=== PATIENT | female | born 1965 | race Caucasian/White ===

== ENCOUNTER 2023-10-18 21:15 | Outpatient (REF) | payer BC, SELFPAY ==
[2023-10-24 09:07] LABS: Age Gdln ACOG Testing Note (.); HPV Aptima Negative (Negative); IGP, Aptima HPV, rfx 16/18,45 Note (.)
== END 2023-10-18 21:16 | disposition home or self-care (01) ==
LOC: LAB 21:15
PROVIDERS: PCP Nurse Practitioner; Visit Provider Nurse Practitioner
DX: Z01.419 Encounter for gynecological examination (general) (routine) without abnormal findings (principal)
CPT/HCPCS: 87624; G0145

== ENCOUNTER 2024-03-21 10:10 | Outpatient (OUT) | payer BC, SELFPAY ==
--- OUTSIDE RECORDS SUMMARY | 2024-03-21 10:17 | XMS_ITS | CCD ---
Author Organization [facility] ion Partnership [facility] Care Team Providers Care Traffic Technician Name Role Phone AICHHOLLida, [facility] ESTELLE Primary Care Unavailable ASHLEY PARK Attending Unavailable ASHLEY PARK Consulting Unavailable ASHLEY PARK Admitting Unavailable Estelle Hoang Primary Care Provider MD Ravi Phillips Attending Unava ilable MD Tianna Garcia Consulting Unavailable [facility], Estelle Hernandez Primary Care Unava ilable [facility], Estelle Hernandez Consulting Unava ilable MD Ravi Phillips Attending Unava ilable [facility], Estelle Hernandez Primary Care Unava ilable [facility], Estelle Hernandez Consulting Unava ilable [facility], Estelle Hernandez Primary Care Unava ilable MD Ravi Phillips Attending Unava ilable MD Ravi Phillips Attending Unava ilable [facility], Estelle Hernandez Primary Care Unava ilable [facility], Estelle Hernandez Primary Care Unava ilable MD Ravi Phillips Attending Unava ilable [facility], Estelle Hernandez Primary Care Unava ilable MD Yu Navarro Attending Unavailable Kwasi Rose PA-C Attending Unavail able [facility], Estelle Hernandez Referring Unava ilable [facility], Estelle Hernandez Primary Care Unava ilable MD Ravi Phillips Attending Unava ilable [facility], Estelle Hernandez Primary Care Unava ilable Estelle Hoang Primary Care Provider ESTELLE HOANG Referring Unavailable AICHHOLZ, ESTELLE J. Primary Care Unavailable ESTELLE HOANG Referring Unavailable ESTELLE HOANG Primary Care Unavailable ESTELLE HOANG Primary Care Unavailable ESTELLE HOANG Referring Unavailable ESTLELE HOANG Attending Unavailable ESTELLE HOANG Attending Unavailable ESTELLE HOANG Attending Unavailable CHERRI PAYTON Attending Unavailable CHERRI PAYTON Attending Unavailable Allergies Allergy Classification Reported Allergen(s) Allergy Type Date of Onset Reaction(s) Facility (1 source) Amoxicillin / Clavulanate; Translations: [Augmentin] Drug Allergy [facility] Repository (1 source) Penicillin G Benzathine; Translations: [penicillin G benzathine] Propensity to adverse reactions to drug (disorder) [facility] Medications Current Medications Medication Drug Class(es) Dates Sig (Normalized) Sig (Original) Kuvdvmrby-LWV-FN-APAP (TYLENOL COLD HEAD CONGESTION PO) (5 sources) Eipvkrxfk-CRD-YD -APAP (TYLENOL COLD HEAD CONGESTION PO) Indications: Acute rhinosinusitis Take by mouth 2 times daily. OTC 0 Active Problems Active Problems Problem Classification Problem Date Documented Da te Episodic/Chronic Abdominal pain (1 source) Pelvic and perineal pain; Translations: [Pelvic and perineal pain] Onset: 11-09-2023 Episodic Essential hypertension (1 source) Essential (primary) hypertension; Translations: [ESSENTIAL PRIMARY HYPERTENSION] Onset: 07-03-2021 Chronic Spondylosis; intervertebral disc disorders; other back problems (1 source) Low back pain; Translations: [Low back pain, unspecified back pain laterality, unspecified chronicity, unspecified whether sciatica present] Episodic Past or Other Problems Problem Classification Problem Date Documented Da te Episodic/Chronic Other screening for suspected conditions (not mental disorders or infectious disease) (1 source) Encounter for screening mammogram for malignant neoplasm of breast; Translations: [Encounter for screening mammogram for malignant neoplasm of breast] Onset: 03-31-2023 Episodic Results Test Name Value Interpretation Reference Range Facility US PELVIS COMPLETEon 024 US PELVIS COMPLETE EXAMINATION: PELVIC ULTRASOUND 11/09/2023 TECHNIQUE: Transabdominal pelvic ultrasound was performed. The patient did not want to undergo the transvaginal portion of the study. COMPARISON: None HISTORY: ORDERING SYSTEM PROVIDED HISTORY: Perineal pain in female FINDINGS: Measurements: Uterus: 7.4 x 4.8 x 3.0 cm Endometrial stripe: 8.8 mm Right Ovary:Not seen Left Ovary: Not seen Ultrasound Findings: Uterus: Uterus demonstrates normal myometrial echotexture. Endometrial stripe: Endometrial stripe is limited in evaluation, due to lack of endovaginal imaging. However it is thickened for a postmenopausal female and appears slightly heterogeneous. Free Fluid: No evidence of free fluid. IMPRESSION: Transabdominal only, limited study as described above. The endometrium measures 8.8 mm in this postmenopausal female and is slightly heterogeneous. Differential diagnosis includes endometrial hyperplasia, polyp, or neoplasm. Direct visualization and sampling is recommended if clinically indicated The findings were sent to the Radiology Results Communication Center at 4:02 pm on 11/09/2023 to be communicated to a licensed caregiver. Interpreted by: Kendrick Dougherty MD Signed by: Kendrick Dougherty MD 11/09/23 Final result Normal [facility] CAM DIGITAL SCREEN SELF REFERRAL W OR WO CAD BILATERALon 04-14-2023 [facility] CAM DIGITAL SCREEN SELF REFERRAL W OR WO CAD BILATERAL EXAMINATION: SCREENING DIGITAL BILATERAL MAMMOGRAM WITH TOMOSYNTHESIS, 03/31/2023 TECHNIQUE: Screening mammography of the bilateral breasts was performed with tomosynthesis. 2D standard and 3D tomosynthesis combination imaging performed through both breasts in the MLO and CC projection. Computer aided detection was utilized in the interpretation of this exam. COMPARISON: None available HISTORY: Screening. FINDINGS: Breasts are composed of scattered fibroglandular density. There is no dominant mass, architectural distortion or concerning grouping of microcalcification in either breast. IMPRESSION: No mammographic evidence of malignancy BIRADS: BIRADS - CATEGORY 1 Negative. Normal interval follow-up is recommended in 12 months. OVERALL ASSESSMENT - NEGATIVE A letter of notification will be sent to the patient regarding the results. The [employer] recommends annual mammograms for women 40 years and older. Interpreted by: Josh Anguiano DO Signed by: Josh Anguiano DO 04/14/23 Final result Normal [facility] Lipid Profileon 02-12-2023 Cholesterol [Mass/Vol] 266 mg/dL High <200 [facility] Comment on above: Result Comment: Cholesterol Guidelines: <200 Desirable 200-240 Borderline >240 Undesirable Performed By: #### C DP, CP, UAMIC #### [facility] [address] [place] [address] Fluoroscope Operator: Wes Barker MD #### LIPR #### [address] [address] Fluoroscope Operator: Anthony Machuca MD Cholesterol in HDL [Mass/Vol] 89 mg/dL Normal >40 [facility] Comment on above: Result Comment: HDL Guidelines: <40 Undesirable 40-59 Borderline >59 Desirable Performed By: #### C DP CP, UAMIC #### [address] [place], [place] [id number] Fluoroscope Operator: Wes Barker MD #### LIPR #### [address] [address] Fluoroscope Operator: Anthony Machuca MD Cholesterol in LDL [Mass/Vol] 160 mg/dL High 0-130 [facility] Comment on above: Result Comment: LDL Guidelines: <100 Desirable 100-129 Near to/above Desirable 130-159 Borderline >159 Undesirable Direct (measured) LDL and calculated LDL are not interchangeable tests. Performed By: #### C JOSE DAVILA, UAMIC #### [address] [place], [place] [id number] Fluoroscope Operator: Wes Barker MD #### LIPR #### [address] [address] Fluoroscope Operator: Anthony Machuca MD Cholesterol.total/C holesterol in HDL [Mass ratio] 3.0 {ratio} Normal <5 [facility] Comment on above: Performed By: #### C GIOVANNI CP, UAMIC #### [address] [place], [place] [id number] Fluoroscope Operator: Wes Barker MD #### LIPR #### [address] [address] Fluoroscope Operator: Anthony Machuca MD Triglyceride [Mass/Vol] 86 mg/dL Normal <150 [facility] Comment on above: Result Comment: Triglyceride Guidelines: <150 Desirable 150-199 Borderline 200-499 High >499 Very high Based on AHA Guidelines for fasting triglyceride, May 2012. Performed By: #### C DP, CP, UAMIC #### [facility] [address] [place] [address] Fluoroscope Operator: Wes Barker MD #### LIPR #### [facility] [address] [place], [place] [address] Fluoroscope Operator: Anthony Machuca MD CBC with Auto Differentialon 02-11-2023 Basophils (Bld) [#/Vol] 0.08 10*3/uL [facility] Basophils/100 WBC (Bld) 1 % 0 - 2 % [facility] Eosinophils (Bld) [#/Vol] 0.37 10*3/uL [facility] Eosinophils/100 WBC (Bld) 4 % 1 - 4 % [facility] Erythrocyte distribution width (RBC) [Ratio] 12.8 % 11.8 - 14.4 % [facility] Hematocrit (Bld) [Volume fraction] 42.7 % 36.3 - 47.1 % [facility] Hemoglobin (Bld) [Mass/Vol] 14.0 g/dL 11.9 - 15.1 g/dL [facility] Immature granulocytes (Bld) [#/Vol] [facility] Immature granulocytes/100 WBC (Bld) 0 % 0 [facility] Lymphocytes/100 WBC (Bld) 38 % 24 - 43 % [facility] Lymphocytes/100 WBC (Bld) 3.40 % [facility] MCH (RBC) [Entitic mass] 31.3 pg 25.2 - 33.5 pg [facility] MCHC (RBC) [Mass/Vol] 32.8 g/dL 28.4 - 34.8 g/dL [facility] MCV (RBC) [Entitic vol] 95.5 fL 82.6 - 102.9 fL [facility] Monocytes/100 WBC (Bld) 9 % 3 - 12 % [facility] Monocytes/100 WBC (Bld) 0.81 % [facility] Neutrophils/100 WBC (Bld) 48 % 36 - 65 % [facility] Nucleated RBC/100 WBC (Bld) [Ratio] 0.0 % 0.0 per 100 WBC [facility] Platelet mean volume (Bld) [Entitic vol] 8.7 fL 8.1 - 13.5 fL [facility] Platelets (Bld) [#/Vol] 396 10*3/uL [facility] RBC (Bld) [#/Vol] 4.47 10*6/uL 3.95 - 5.1 1 m/uL [facility] Segmented neutrophils/100 WBC (Bld) 4.19 % [facility] WBC other (Bld) [#/Vol] 8.9 [facility] CBC with Diffon 02-11-2023 Abs. Basophil 0.08 k/uL Normal 0.00-0.20 [facility] Comment on above: Performed By: #### C DP, CP, UAMIC #### [facility] [address] [place] [address] [place] [address] Fluoroscope Operator: Wes Barker MD #### LIPR #### [place] [id number] Fluoroscope Operator: Anthony Machuca MD Abs.Imm.Granulocyte <0.03 Normal 0.00-0.30 [facility] Comment on above: Performed By: #### C DP, CP, UAMIC #### [facility] [address] [place] [phone] Fluoroscope Operator: Wes Barker MD #### LIPR #### [place] [address] Fluoroscope Operator: Anthony Machuca MD Abs.Neutrophil (Seg) 4.19 k/uL Normal 1.50-8.10 [facility] Comment on above: Performed By: #### C DP, CP, UAMIC #### [facility] [address] [place], [place] 537[address]83 Fluoroscope Operator: Wes Barker MD #### LIPR #### [address] [id number] Fluoroscope Operator: Anthony Machuca MD Basophils/100 WBC (Bld) 1 % Normal 0-2 [facility] Comment on above: Performed By: #### C DP, CP, UAMIC #### [facility] [address] [place], [place] [address] Fluoroscope Operator: Wes Barker MD #### LIPR #### [address] [id number] Fluoroscope Operator: Anthony Machuca MD Eosinophils (Bld) [#/Vol] 0.37 10*3/uL Normal 0.00-0.44 [facility] Comment on above: Performed By: #### C DP, CP, UAMIC #### [facility] [address] [place], [place] [address] Fluoroscope Operator: Wes Barker MD #### LIPR #### [address] [phone] Fluoroscope Operator: Anthony Machuca MD Eosinophils/100 WBC (Bld) 4 % Normal 1-4 [facility] Comment on above: Performed By: #### C DP, CP, UAMIC #### [facility] [address] [place], [place] [address] Fluoroscope Operator: Wes Barker MD #### LIPR #### [address] [address] Fluoroscope Operator: Anthony Machuca MD Erythrocyte distribution width (RBC) [Ratio] 12.8 % Normal 11.8-14.4 [facility] Comment on above: Performed By: #### C DP, CP, UAMIC #### [facility] [address] [place], [place] [address] Fluoroscope Operator: Wes Barker MD #### LIPR #### [address] [phone] Fluoroscope Operator: Anthony Machuca MD Hematocrit (Bld) [Volume fraction] 42.7 % Normal 36.3-47.1 [facility] Comment on above: Performed By: #### C DP, CP, UAMIC #### [facility] [address] [place] [address] [place] [phone] Fluoroscope Operator: Wes Barker MD #### LIPR #### [address] [address] Fluoroscope Operator: Anthony Machuca MD Hemoglobin (Bld) [Mass/Vol] 14.0 g/dL Normal 11.9-15.1 [facility] Comment on above: Performed By: #### C DP, CP, UAMIC #### [facility] [address] [place] [address] [place] [phone] Fluoroscope Operator: Wes Barker MD #### LIPR #### [place] [address] Fluoroscope Operator: Anthony Machuca MD Immature granulocytes/100 WBC (Bld) 0 % Normal 0 [facility] Comment on above: Performed By: #### C DP, CP, UAMIC #### [address] [place], [place] [address] Fluoroscope Operator: Wes Barker MD #### LIPR #### [place] [address] Fluoroscope Operator: Anthony Machuca MD Lymphocytes (Bld) [#/Vol] 3.40 10*3/uL Normal 1.10-3.70 [facility] Comment on above: Performed By: #### C DP, CP, UAMIC #### [facility] [address] [place] [address] Fluoroscope Operator: Wes Barker MD #### LIPR #### [place] [address] [place], [place] 9375308 Fluoroscope Operator: Anthony Machuca MD Lymphocytes/100 WBC (Bld) 38 % Normal 24-43 [facility] Comment on above: Performed By: #### C DP, CP, UAMIC #### [facility] [address] [place] [address] Fluoroscope Operator: Wes Barker MD #### LIPR #### [place] [address] [place], [place] [address] Fluoroscope Operator: Anthony Machuca MD MCH (RBC) [Entitic mass] 31.3 pg Normal 25.2-33.5 [facility] Comment on above: Performed By: #### C DP, CP, UAMIC #### [facility] [address] [place] [address] Fluoroscope Operator: Wes Barker MD #### LIPR #### [address] [phone] Fluoroscope Operator: Anthony Machuca MD MCHC (RBC) [Mass/Vol] 32.8 g/dL Normal 28.4-34.8 [facility] Comment on above: Performed By: #### C DP, CP, UAMIC #### [facility] [address] [place] [address] Fluoroscope Operator: Wes Barker MD #### LIPR #### [address] [phone] Fluoroscope Operator: Anthony Machuca MD MCV (RBC) [Entitic vol] 95.5 fL Normal 82.6-102.9 [facility] Comment on above: Performed By: #### C DP, CP, UAMIC #### [facility] [address] [place], [place] 9296383 Fluoroscope Operator: Wes Barker MD #### LIPR #### [address] [address] Fluoroscope Operator: Anthony Machuca MD Monocytes (Bld) [#/Vol] 0.81 10*3/uL Normal 0.10-1.20 [facility] Comment on above: Performed By: #### C DP, CP, UAMIC #### [facility] [address] [place], [place] 575[address] Fluoroscope Operator: Wes Barker MD #### LIPR #### [address] [address] Fluoroscope Operator: Anthony Machuca MD Monocytes/100 WBC (Bld) 9 % Normal 3-12 [facility] Comment on above: Performed By: #### C DP, CP, UAMIC #### [address] [place], [place] 58[address]83 Fluoroscope Operator: Wes Barker MD #### LIPR #### [address] [address] Fluoroscope Operator: Anthony Machuca MD Neutrophil (Seg) 48 % Normal 36-65 [facility] Comment on above: Performed By: #### C DP, CP, UAMIC #### [address] [place], [place] 6647383 Fluoroscope Operator: Wes Barker MD #### LIPR #### [address] [address] Fluoroscope Operator: Anthony Machuca MD NRBC Automated 0.0 per 100 WBC Normal 0.0 [facility] Comment on above: Performed By: #### C DP, CP, UAMIC #### [address] [place] [address] Fluoroscope Operator: Wes Barker MD #### LIPR #### [place] [address] [place], [place] 7040508 Fluoroscope Operator: Anthony Machuca MD Platelet mean volume (Bld) [Entitic vol] 8.7 fL Normal 8.1-13.5 [facility] Comment on above: Performed By: #### C DP, CP, UAMIC #### [address] [place] [phone] Fluoroscope Operator: Wes Barker MD #### LIPR #### [place] [phone] Fluoroscope Operator: Anthony Machuca MD Platelets (Bld) [#/Vol] 396 10*3/uL Normal 138-453 [facility] Comment on above: Performed By: #### C DP, CP, UAMIC #### [address] [place] [phone] Fluoroscope Operator: Wes Barker MD #### LIPR #### [place] [address] Fluoroscope Operator: Anthony Machuca MD RBC (Bld) [#/Vol] 4.47 10*6/uL Normal 3.95-5.11 [facility] Comment on above: Performed By: #### C DP, CP, UAMIC #### [address] [place] [address] Fluoroscope Operator: Wes Barker MD #### LIPR #### [place] [id number] Fluoroscope Operator: Anthony Machuca MD WBC (Bld) [#/Vol] 8.9 10*3/uL Normal 3.5-11.3 [facility] Comment on above: Performed By: #### C DP, CP, UAMIC #### [facility] [address] [place] [address] Dr[address] [place], [place] 885[address]83 Fluoroscope Operator: Wes Barker MD #### LIPR #### [address] [id number] Fluoroscope Operator: Anthony Machuca MD Comp Metabolic Profon 2022 Albumin [Mass/Vol] 4.8 g/dL Normal 3.5-5.2 [facility] Comment on above: Performed By: #### C DP, CP, UAMIC #### [address] [place], [place] [address] Fluoroscope Operator: Wes Barker MD #### LIPR #### [address] [phone] Fluoroscope Operator: Anthony Machuca MD Albumin/Glob Ratio 1.6 Normal 1.0-2.5 [facility] Comment on above: Performed By: #### C DP, CP, UAMIC #### [address] [place], [place] 95[address]83 Fluoroscope Operator: Wes Barker MD #### LIPR #### [address] [address] Fluoroscope Operator: Anthony Machuca MD Alkaline Phos 100 U/L Normal 35-104 [facility] Comment on above: Performed By: #### C DP, CP, UAMIC #### [address] [place], [place] 8740783 Fluoroscope Operator: Wes Barker MD #### LIPR #### [address] [address] Fluoroscope Operator: Anthony Machuca MD ALT [Catalytic activity/Vol] 25 U/L Normal 5-33 [facility] Comment on above: Performed By: #### C DP, CP, UAMIC #### [address] [place] [address] Fluoroscope Operator: Wes Barker MD #### LIPR #### [place] [address] [place], [place] 7056808 Fluoroscope Operator: Anthony Machuca MD Anion gap [Moles/Vol] 10 mmol/L Normal 9-17 [facility] Comment on above: Performed By: #### C DP, CP, UAMIC #### [facility] [address] [place] [address] Fluoroscope Operator: Wes Barker MD #### LIPR #### [address] [id number] Fluoroscope Operator: Anthony Machuca MD AST [Catalytic activity/Vol] 27 U/L Normal <32 [facility] Comment on above: Performed By: #### C DP, CP, UAMIC #### [facility] [address] [place] [address] [address] [phone] Fluoroscope Operator: Wes Barker MD #### LIPR #### [address] [phone] Fluoroscope Operator: Anthony Machuca MD Bilirubin [Mass/Vol] 0.4 mg/dL Normal 0.3-1.2 [facility] Comment on above: Performed By: #### C DP, CP, UAMIC #### [facility] [address] [place] [address] Dr[address] [place] [phone] Fluoroscope Operator: Wes Barker MD #### LIPR #### [address] [address] Fluoroscope Operator: Anthony Machuca MD BUN/CRE Ratio 19 Normal -20 [facility] Comment on above: Performed By: #### C DP, CP, UAMIC #### [facility] [address] [place], [place] 4289283 Fluoroscope Operator: Wes Barker MD #### LIPR #### [address] [place] [address] Fluoroscope Operator: Anthony Machuca MD Calcium [Mass/Vol] 9.8 mg/dL Normal 8.6-10.4 [facility] Comment on above: Performed By: #### C DP, CP, UAMIC #### [facility] [address] [place], [place] 6222783 Fluoroscope Operator: Wes Barker MD #### LIPR #### [address] [address] Fluoroscope Operator: Anthony Machuca MD Chloride [Moles/Vol] 100 mmol/L Normal 98-107 [facility] Comment on above: Performed By: #### C DP, CP, UAMIC #### [facility] [address] [place] [address] Dr[place], [place] 1002583 Fluoroscope Operator: Wes Barker MD #### LIPR #### [address] [address] Fluoroscope Operator: Anthony Machuca MD CO2 [Moles/Vol] 29 mmol/L Normal 20-31 [facility] Comment on above: Performed By: #### C DP, CP, UAMIC #### [facility] [address] [place] [address] Dr[address] [place], [place] 0551083 Fluoroscope Operator: Wes Barker MD #### LIPR #### [address] [address] Fluoroscope Operator: Anthony Machuca MD Creatinine [Mass/Vol] 0.8 mg/dL Normal 0.5-0.9 [facility] Comment on above: Performed By: #### C DP, CP, UAMIC #### [facility] [address] [place] [address] [place], [place] 50[address]83 Fluoroscope Operator: Wes Barker MD #### LIPR #### [address] [address] Fluoroscope Operator: Anthony Machuca MD GFR/1.73 sq M.predicted among non-blacks MDRD (S/P/Bld) [Vol rate/Area] mL/min/{1.73_m2} Normal >60 [facility] Comment on above: Result Comment: These results are not intended for use in patients <18 years of age. eGFR results are calculated without a race factor using the 2020 CKD-EPI equation. Careful clinical correlation is recommended, particularly when comparing to results calculated using previous equations. The CKD-EPI equation is less accurate in patients with extremes of muscle mass, extra-renal metabolism of creatine, excessive creatine ingestion, or following therapy that affects renal tubular secretion. Performed By: #### C JOSE DAVILA, UAMIC #### [address] [place] [address] Fluoroscope Operator: Wes Barker MD #### LIPR #### [address] [id number] Fluoroscope Operator: Anthony Machuca MD Glucose [Mass/Vol] 95 mg/dL Normal 70-99 [facility] Comment on above: Performed By: #### C JOSE DAVILA, UAMIC #### [address] [place] [phone] Fluoroscope Operator: Wes Barker MD #### LIPR #### [address] [address] Fluoroscope Operator: Anthony Machuca MD Potassium [Moles/Vol] 4.4 mmol/L Normal 3.7-5.3 [facility] Comment on above: Performed By: #### C DP CP, UAMIC #### [address] [place] [address] Fluoroscope Operator: Wes Barker MD #### LIPR #### [address] [phone] Fluoroscope Operator: Anthony Machuca MD Protein [Mass/Vol] 7.8 g/dL Normal 6.4-8.3 [facility] Comment on above: Performed By: #### C DP, CP, UAMIC #### [facility] [address] [place] [address] Fluoroscope Operator: Wes Barker MD #### LIPR #### [place] [address] [place], [place] 436[address] Fluoroscope Operator: Anthony Machuca MD Sodium [Moles/Vol] 139 mmol/L Normal 135-144 [facility] [facility] Comment on above: Performed By: #### C DP, CP, UAMIC #### [facility] [address] [place] [address] Fluoroscope Operator: Wes Barker MD #### LIPR #### [address] [place], [place] [id number] Fluoroscope Operator: Anthony Machuca MD Urea nitrogen [Mass/Vol] 15 mg/dL Normal 6-20 [facility] Comment on above: Performed By: #### C DP, CP, UAMIC #### [facility] [address] [place] [address] [place] [address] Fluoroscope Operator: Wes Barker MD #### LIPR #### [address] [place], [place] [phone] Fluoroscope Operator: Anthony Machuca MD Comprehensive Metabolic Pane [facility] 02-11-2023 Albumin [Mass/Vol] 4.8 g/dL 3.5 - 5.2 g/dL [facility] Albumin/Globulin [Mass ratio] 1.6 {ratio} 1.0 - 2.5 [facility] ALP [Catalytic activity/Vol] 100 U/L 35 - 104 U/L [facility] ALT [Catalytic activity/Vol] 25 U/L 5 - 33 U/L [facility] Anion gap [Moles/Vol] 10 mmol/L 9 - 17 mmol/L [facility] AST [Catalytic activity/Vol] 27 U/L [facility] - 32 U/L [facility] Bilirubin [Mass/Vol] 0.4 mg/dL 0.3 - 1.2 mg/dL [facility] Calcium [Mass/Vol] 9.8 mg/dL 8.6 - 10. 4 mg/dL [facility] Chloride [Moles/Vol] 100 mmol/L 98 - 107 mmol/L [facility] CO2 [Moles/Vol] 29 mmol/L 20 - 31 mmol/L [facility] Creatinine [Mass/Vol] 0.8 mg/dL 0.5 - 0.9 mg/dL [facility] GFR/1.73 sq M.predicted MDRD (S/P/Bld) [Vol rate/Area] - PINF [facility] Comment on above: These results are not intended for use in patients <18 years of age. eGFR results are calculated without a race factor using the 2020 CKD-EPI equation. Careful clinical correlation is recommended, particularly when comparing to results calculated using previous equations. The CKD-EPI equation is less accurate in patients with extremes of muscle mass, extra-renal metabolism of creatine, excessive creatine ingestion, or following therapy that affects renal tubular secretion. Glucose [Mass/Vol] 95 mg/dL 70 - 99 mg/dL [facility] Potassium [Moles/Vol] 4.4 mmol/L 3.7 - 5.3 mmol/L [facility] Protein [Mass/Vol] 7.8 g/dL 6.4 - 8.3 g/dL [facility] Sodium [Moles/Vol] 139 mmol/L 135 - 144 mmol/L [facility] Urea nitrogen [Mass/Vol] 15 mg/dL 6 - 20 mg/dL [facility] Urea nitrogen/Creatinine [Mass ratio] 19 mg/mg 9 - 20 [facility] Lipid Panelon 02-11-2023 Cholesterol [Mass/Vol] 266 mg/dL High NINF - 200 mg/dL [facility] Comment on above: Cholesterol Guidelines: <200 Desirable 200-240 Borderline >240 Undesirable Cholesterol in HDL [Mass/Vol] 89 mg/dL 40 - PINF mg/dL [facility] Comment on above: HDL Guidelines: <40 Undesirable 40-59 Borderline >59 Desirable Cholesterol in LDL [Mass/Vol] 160 mg/dL High 0 - 130 mg/dL [facility] Comment on above: LDL Guidelines: <100 Desirable 100-129 Near to/above Desirable 130-159 Borderline >159 Undesirable Direct (measured) LDL and calculated LDL are not interchangeable tests. Cholesterol.total/C holesterol in HDL [Mass ratio] 3.0 {ratio} NINF - 5 [facility] Interpretation and review of laboratory results Abnormal [facility] Triglyceride [Mass/Vol] 86 mg/dL NINF - 150 mg/dL [facility] Comment on above: Triglyceride Guidelines: <150 Desirable 150-199 Borderline 200-499 High >499 Very high Based on AHA Guidelines for fasting triglyceride, May 2012. [facility] Urinalysis w/ Microon 2022 Bacteria 2+ Abnormal NONE [facility] Comment on above: Performed By: #### C DP, CP, UAMIC #### [facility] [address] [place] [address] Dr[address] [place] [id number] Fluoroscope Operator: Wes Barker MD #### LIPR #### [place] [address] [id number] Fluoroscope Operator: Anthony Machuca MD Bilirubin, SemiQt,Ur Negative Normal NEG [facility] Comment on above: Performed By: #### C DP, CP, UAMIC #### [address] [place] [phone] Fluoroscope Operator: Wes Barker MD #### LIPR #### [address] [address] Fluoroscope Operator: Anthony Machuca MD Blood, Urine Negative Normal NEG [facility] Comment on above: Performed By: #### C DP, CP, UAMIC #### [address] [place] [phone] Fluoroscope Operator: Wes Barker MD #### LIPR #### [address] [place] [address] Fluoroscope Operator: Anthony Machuca MD Clarity (U) SLIGHTLY CLOUDY Abnormal CLEAR [facility] Comment on above: Performed By: #### C DP, CP, UAMIC #### [facility] [address] [place] [address] [place], [place] [phone] Fluoroscope Operator: Wes Barker MD #### LIPR #### [address] [address] Fluoroscope Operator: Anthony Machuca MD Color (U) Yellow Normal YEL [facility] Comment on above: Performed By: #### C DP, CP, UAMIC #### [address] [place], [place] [phone] Fluoroscope Operator: Wes Barker MD #### LIPR #### [address] [address] Fluoroscope Operator: Anthony Machuca MD Epithelial cells LM Ql (Urine sed) 5 TO 10 Normal 0-25 [facility] Comment on above: Performed By: #### C DP, CP, UAMIC #### [address] [place], [place] [phone] Fluoroscope Operator: Wes Barker MD #### LIPR #### [address] [address] Fluoroscope Operator: Anthony Machuca MD Glucose Ql (U) Negative Normal NEG [facility] Comment on above: Performed By: #### C DP, CP, UAMIC #### [facility] [address] [place] [address] Dr[address] [place], [place] [phone] Fluoroscope Operator: Wes Barker MD #### LIPR #### [address] [address] Fluoroscope Operator: Anthony Machuca MD Ketones Ql (U) Negative Normal NEG [facility] Comment on above: Performed By: #### C DP, CP, UAMIC #### [facility] [address] [place] [address] Fluoroscope Operator: Wes Barker MD #### LIPR #### [address] [address] Fluoroscope Operator: Anthony Machuca MD Leukocyte esterase Test strip Ql (U) Negative Normal NEG [facility] Comment on above: Performed By: #### C DP, CP, UAMIC #### [facility] [address] [place] [address] Dr. [place], [place] [phone] Fluoroscope Operator: Wes Barker MD #### LIPR #### [address] [address] Fluoroscope Operator: Anthony Machuca MD Mucus Strands 2+ Abnormal NONE [facility] Comment on above: Performed By: #### C DP, CP, UAMIC #### [address] [place], [place] [phone] Fluoroscope Operator: Wes Barker MD #### LIPR #### [address] [address] Fluoroscope Operator: Anthony Machuca MD Nitrite,Ur Negative Normal NEG [facility] Comment on above: Performed By: #### C DP, CP, UAMIC #### [facility] [address] [place] [address] Dr[place], [place] [phone] Fluoroscope Operator: Wes Barker MD #### LIPR #### [address] [address] Fluoroscope Operator: Anthony Machuca MD PH,Ur 6.0 Normal 5.0-9.0 [facility] Comment on above: Performed By: #### C DP, CP, UAMIC #### [facility] [address] [place] [address] Dr[place], [place] [phone] Fluoroscope Operator: Wes Barker MD #### LIPR #### [address] [address] Fluoroscope Operator: Anthony Machuca MD Protein Ql (U) Negative Normal NEG [facility] Comment on above: Performed By: #### C DP, CP, UAMIC #### [facility] [address] [place], [place] [phone] Fluoroscope Operator: Wes Barker MD #### LIPR #### [address] [address] Fluoroscope Operator: Anthony Machuca MD Spec. Toxey,Ur 1.025 High 1.010-1.020 [facility] Comment on above: Performed By: #### C DP, CP, UAMIC #### [facility] [address] [place] [address] Dr[place], [place] [phone] Fluoroscope Operator: Wes Barker MD #### LIPR #### [address] [address] Fluoroscope Operator: Anthony Machuca MD Urine RBC's 0 TO 2 Normal 0-2 [facility] Comment on above: Performed By: #### C DP, CP, UAMIC #### [facility] [address] [place] [address] Dr[place], [place] [phone] Fluoroscope Operator: Wes Barker MD #### LIPR #### [address] [address] Fluoroscope Operator: Anthony Machuca MD Urine WBC's 5 TO 10 Normal 0-5 [facility] Comment on above: Performed By: #### C DP, CP, UAMIC #### [address] [place] [address] Fluoroscope Operator: Wes Barker MD #### LIPR #### [address] [address] Fluoroscope Operator: Anthony Machuca MD Urobilinogen,Ur Normal Normal 0.0-1.0 [facility] Comment on above: Performed By: #### C DP, CP, UAMIC #### [facility] [address] [place] [address] Fluoroscope Operator: Wes Barker MD #### LIPR #### [facility] [address] [place] [address] Fluoroscope Operator: Anthony Machuca MD Urinalysis with Microscopico n 02-11-2023 Bacteria LM Ql (Urine sed) 2+ Abnormal None [facility] Bilirubin Ql (U) Negative NEGATIVE [facility] Clarity (U) SLIGHTLY CLOUDY Abnormal Clear [facility] Color (U) Yellow Yellow [facility] Epithelial cells LM.HPF (Urine sed) [#/Area] 5 TO 10 [facility] Glucose Test strip (U) [Mass/Vol] Negative NEGATIVE mg/dL [facility] Hemoglobin Auto test strip Ql (U) Negative NEGATIVE [facility] Interpretation and review of laboratory results Abnormal [facility] Ketones (U) [Mass/Vol] Negative NEGATIVE mg/dL [facility] Leukocyte esterase Test strip Ql (U) Negative NEGATIVE [facility] Mucus Ql (Urine sed) 2+ Abnormal None [facility] Nitrite Ql (U) Negative NEGATIVE [facility] pH (U) 6.0 [pH] 5.0 - 9.0 [facility] Protein (U) [Mass/Vol] Negative NEGATIVE mg/dL [facility] RBC LM.HPF (Urine sed) [#/Area] 0 TO 2 [facility] Specific gravity (U) [Rel density] 1.025 High 1.010 - 1.020 [facility] Urobilinogen Qn (U) Normal 0.0 - 1. 0 EU/dL [facility] WBC LM.HPF (Urine sed) [#/Area] 5 TO 10 [facility] Neurosurgery Office/Clinic N oteon 06-23-2022 Neurosurgery Office/Clinic Note Chief Complaint Patient being seen for back follow up. Physical Exam Vitals & Measurements HR: 84 (Peripheral) BP: 138/78 SpO2: 98 HT: 152 cm WT: 68.49 kg WT: 68.49 kg (Dosing) BMI: 29.64 Additional Vitals BP Position/Location: Sitting, Left arm Assessment/Plan 1. Left lumbar radiculopathy 2. Lumbar degenerative disc disease 3. Lumbar radiculopathy, chronic Primary provider: estelle hoang Referring provider: [] Other providers: [] Current history: Pleasant 56-year-old female who presented to the neurosurgery clinic with a 6-month history of left S1 radiculopathy which caused unrelenting and intractable pain that affected all aspects of ADLs and personal care. As result of duration of her syndrome as well as failure of conservative measures, she was taken to the operating room on March 10 of this year and underwent uncomplicated left L5-S1 lumbar microdiscectomy. She was able to discharge home as an outpatient the same day. Patient returns 3 months after her intervention and notes that the majority of her sensory neuropathy has resolved such that she only has a bit of numbness on the tip of her fifth digit. She has no radicular pain but does occasionally note a pulling sensation in her inferior gluteal region and proximal hamstring left side, particularly when she first awakens and gets out of bed. She does note some low back pain that improved with stretching. Has unlimited ability to walk and has returned to most of her activities of daily lifestyle including home keeping. She is interested in returning to work. No fevers or chills or other constitutional symptoms Constitutional: [No fevers, chills, sweats] Eye: [No recent visual problems] ENMT: [No ear pain, nasal congestion, sore throat] Respiratory: [No shortness of breath, cough] Cardiovascular: [No Chest pain, palpitations, syncope] Gastrointestinal: [No nausea, vomiting, diarrhea] Genitourinary: [No hematuria] General: Pleasant and cooperative Straight leg raise: Negative Hip exam: [] Fabere sign and Johnathon's sign Cervical range of motion: [] Shoulder exam: [] Lumbar range of motion: Flexion is age-appropriate and she can come within 6 inches of touching the ground with forward flexion at the waist; unrestricted extension Incision: Well-healed Neuro: mental status: awake, alert, appropriate with normal mental status exam cranial nerves: No ophthalmoplegia, facial palsy or lower cranial neuropathy motor: 5/5 power all groups Deep tendon reflexes: [] gait: Comfortable gait with no motor neuropathy Assessment/plan: 3 months status post lumbar microdiscectomy for severe sciatica. Patient has returned and has only trace sensory deficit, no motor neuropathy, and no significant neurotension signs. Her comfort is improved as well. From a neurosurgical perspective, appears able to return to normal activities within the scope of access bending at the waist, heavy lifting, pushing, pulling. The patient is permitted to return to her preoperative job position without restrictions but is advised to avoid excess lifting or pushing or pulling Patient is pleased with her outcome and will contact the office if she has any change in her status Patient will use NSAIDs/local topical therapies such as heat or ice as she deems appropriate Old imaging reviewed with patient on large screen TV with surgeon interpretation and all of the above explained and she is appreciative. Follow-up: As needed Referrals: Medical Decision Making: Chronic conditions NOT treated during this visit that affected my overall medical decision making: N/A Treatment plans discussed but not opted for at this time: Reimaging Prescribed medication that requires intensive monitoring for toxicity: None I have reviewed the patient?s medication list for medication interactions/contrain dications and/or for upcoming procedures: Yes Time Spent with the Patient I have personally spent 16 minutes on this date, directly related to today's patient visit, including pre and post visit work, for this date of service. Time listed does not include time spent on separately billable services. Medical Decision Making Chronic conditions NOT treated during this visit that affected my overall medical decision making: [] Treatment plans discussed but not opted for at this time: [] Prescribed medication that requires intensive monitoring for toxicity: [] I have reviewed the patient?s medication list for medication interactions/contrain dications and/or for upcoming procedures: [yes or no] Time Spent with the Patient I have personally spent [] minutes on this date, directly related to today's patient visit, including pre and post visit work, for this date of service. Time listed does not include time spent on separately billable services. Problem List/Past Medical History Ongoing Bone loss of mandible Hypertension - High blood pressure Left lumbar radiculopathy Lumbar degenerative disc disease Lumbar (more content not included)... Normal [facility] Provider Letteron 06-23-2022 Provider Letter RUSTY [facility] [address] [place] [address] Re: Carleen Burns Date of Visit: 06/23/2022 Dear Estelle OJEDA, Let me know if you have any questions or concerns. Sincerely, MIGUEL Yung MD Providers: The following document(s) were included in the letter: June 23, 2022 15:42:08 EST - (06/23/2022) Neurosurgery Office Visit Note Normal [facility] Neurosurgery Office/Clinic N oteon 05-07-2022 Neurosurgery Office/Clinic Note Physical Exam Vitals & Measurements HR: 90 (Peripheral) BP: 100/54 HT: 152 cm WT: 68.1 kg WT: 68.1 kg (Dosing) BMI: 29.48 Additional Vitals BP Position/Location: Sitting, Right arm Assessment/Plan 1. Left lumbar radiculopathy 2. Lumbar degenerative disc disease Primary provider: estelle hoang Referring provider: [] Other providers: [] Current history: Pleasant 56-year-old female who presented to the neurosurgery clinic with a 6-month history of left S1 radiculopathy which caused unrelenting and intractable pain that affected all aspects of ADLs and personal care. As result of duration of her syndrome as well as failure of conservative measures, she was taken to the operating room on March 10 of this year and underwent uncomplicated left L5-S1 lumbar microdiscectomy. She was able to discharge home as an outpatient the same day. She now returns 3 weeks later noting a significant reduction in the pain in her left leg. She still has tightness in her hamstring that becomes painful if she forward flexes more than 30 to 40 degrees. She also notes some numbness in her left foot, but both are improved and she has subjective improvement in weakness. She denies any fevers or chills and has had no wound drainage. She is eating well. She wonders if she may return to work in a reduced capacity, though she is unsure whether they will permit her back with significant restrictions. Overall, the patient notes 70 to 80% improvement compared to before surgery. Patient has 1 week of physical therapy left and does find that it is improved her flexibility, though with some therapy or deep bending at the waist, she does develop some pain in her left gluteal region and hamstring. Continues to have some numbness but believes this is improving. Overall, requires no narcotic support or muscle relaxers and only rarely takes NSAIDs. Does continue to smoke cigarettes in spite of education by the surgeon (performed again today) regarding the deleterious effects with regards to disc health Constitutional: [No fevers, chills, sweats] Eye: [No recent visual problems] ENMT: [No ear pain, nasal congestion, sore throat] Respiratory: [No shortness of breath, cough] Cardiovascular: [No Chest pain, palpitations, syncope] Gastrointestinal: [No nausea, vomiting, diarrhea] Genitourinary: [No hematuria] General: Pleasant and cooperative Straight leg raise: Mildly positive at extremes range of motion Hip exam: [] Fabere sign and Johnathon's sign Cervical range of motion: [] Shoulder exam: [] Lumbar range of motion: Flexion limited to approximately 30 to 40 degrees with a complaint of increased left gluteal and hamstring pain Incision: Well-healed and Steri-Strips are removed with no infectious complications such as erythema, tenderness or fluctuance Neuro: mental status: awake, alert, appropriate with normal mental status exam cranial nerves: No ophthalmoplegia, facial palsy or lower cranial neuropathy motor: 5/5 power all groups Deep tendon reflexes: [] gait: Comfortable gait with no motor neuropathy Assessment/plan: 7 weeks following lumbar microdiscectomy for intractable left S1 radiculopathy secondary to large disc protrusion/intra annular disc herniation. Patient appears to be doing reasonably well although she still has some myotomal pain in the hamstrings and gluteal region, particularly with forward flexion of the torso or bending. This could imply a small recurrence of disc herniation or could simply be peridural fibrosis. The patient is still able to conduct most of her ADLs and work and has had rearrangement of work assignments such as she is not performing heavy lifting. The surgeon recommended that she continue restrictions at work with no lifting, pushing, pulling greater than 30 pounds but she may otherwise begin to perform more normal activities, using ergonomic methods learned at physical therapy for bending Overall, patient appears considerably more comfortable than when she entered the clinic. Patient will complete her physical therapy and slowly read meters of into more normal lifestyle, respecting recommended lifting, pushing, pulling restrictions of no greater than 30 pounds. This includes both work and at home. Patient will use NSAIDs/local topical therapies such as heat or ice as she deems appropriate Reassessment in 8 to 12 weeks Old imaging reviewed with patient on large screen TV with surgeon interpretation and all of the above explained and she is appreciative. Follow-up: 8 to 10 weeks Referrals: Medical Decision Making: Chronic conditions NOT treated during this visit that affected my overall medical decision making: N/A Treatment plans discussed but not opted for at this time: Reimaging Prescribed medication that requires intensive monitoring for toxicity: None I have reviewed the patient?s medication list for medication interactions/contrain dications and/or for upcoming procedures: Yes Time Spent with the Patient I have personal (more content not included)... Normal [facility] Provider Letteron 05-07-2022 Provider Letter [facility]UST[facility] [address] [place] [address] Re: Carleen Anese Date of Visit: 05/07/2022 Dear Estelle OJEDA, Let me know if you have any questions or concerns. Sincerely, MIGUEL Yung MD C Providers: The following document(s) were included in the letter: May 07, 2022 14:54:11 EDT - (05/07/2022) Neurosurgery Office Visit Note Normal [facility] Neurosurgery Office/Clinic N oteon 04-02-2022 Neurosurgery Office/Clinic Note Chief Complaint Pt states being seen for a post op visit. Physical Exam Vitals & Measurements HR: 70 (Peripheral) BP: 110/62 SpO2: 98 HT: 152 cm WT: 65 kg WT: 65 kg (Dosing) BMI: 28.13 Additional Vitals BP Position/Location: Sitting, Left arm Assessment/Plan 1. Left lumbar radiculopathy Ordered: Referral to Physical Therapy 2. Lumbar degenerative disc disease Ordered: Referral to Physical Therapy 3. Lumbar radiculopathy, chronic Ordered: Referral to Physical Therapy 4. Nicotine dependence Ordered: Referral to Physical Therapy Orders: External Referral Primary provider: estelle hoang Referring provider: [] Other providers: [] Current history: Pleasant 56-year-old female who presented to the neurosurgery clinic with a 6-month history of left S1 radiculopathy which caused unrelenting and intractable pain that affected all aspects of ADLs and personal care. As result of duration of her syndrome as well as failure of conservative measures, she was taken to the operating room on March 10 of this year and underwent uncomplicated left L5-S1 lumbar microdiscectomy. She was able to discharge home as an outpatient the same day. She now returns 3 weeks later noting a significant reduction in the pain in her left leg. She still has tightness in her hamstring that becomes painful if she forward flexes more than 30 to 40 degrees. She also notes some numbness in her left foot, but both are improved and she has subjective improvement in weakness. She denies any fevers or chills and has had no wound drainage. She is eating well. She wonders if she may return to work in a reduced capacity, though she is unsure whether they will permit her back with significant restrictions. Overall, the patient notes 70 to 80% improvement compared to before surgery. She notes a bruised sensation in her back at the surgical incision site which is the majority of her discomfort. She is currently taking no medication for pain including NSAIDs Constitutional: [No fevers, chills, sweats] Eye: [No recent visual problems] ENMT: [No ear pain, nasal congestion, sore throat] Respiratory: [No shortness of breath, cough] Cardiovascular: [No Chest pain, palpitations, syncope] Gastrointestinal: [No nausea, vomiting, diarrhea] Genitourinary: [No hematuria] General: Pleasant and cooperative Straight leg raise: Mildly positive at extremes range of motion Hip exam: [] Fabere sign and Johnathon's sign Cervical range of motion: [] Shoulder exam: [] Lumbar range of motion: Flexion limited to approximately 30 to 40 degrees with a complaint of increased left gluteal and hamstring pain Incision: Well-healed and Steri-Strips are removed with no infectious complications such as erythema, tenderness or fluctuance Neuro: mental status: awake, alert, appropriate with normal mental status exam cranial nerves: No ophthalmoplegia, facial palsy or lower cranial neuropathy motor: 5/5 power all groups Deep tendon reflexes: [] gait: Comfortable gait with no motor neuropathy Assessment/plan: 3 weeks following lumbar microdiscectomy for intractable left S1 radiculopathy secondary to large disc protrusion/intra annular disc herniation. Patient appears to be doing fairly well and may have reduction in some of her postoperative restrictions. This includes: May operate automobile Lifting up to 10 pounds Return to work provided it is sedentary work style with no lifting greater than 10 pounds. Work release with restrictions are outlined by the surgeon and work release form is filled out by surgeon Initiation of physical therapy-physical therapy prescription is given to the patient Overall, patient appears considerably more comfortable than when she entered the clinic. She will proceed with physical therapy and return in 4 weeks. If at that time, she is doing well, anticipate return to normal work duties and discharge from the neurosurgery clinic. If she has worsening of residual sciatica, may require reimaging. Old imaging reviewed with patient on large screen TV with surgeon interpretation and all of the above explained and she is appreciative. Follow-up: 4 weeks Referrals: Physical therapy Medical Decision Making: Chronic conditions NOT treated during this visit that affected my overall medical decision making: N/A Treatment plans discussed but not opted for at this time: Reimaging Prescribed medication that requires intensive monitoring for toxicity: None I have reviewed the patient?s medication list for medication interactions/contrain dications and/or for upcoming procedures: Yes Time Spent with the Patient I have personally spent 19 minutes on this date, directly related to today's patient visit, including pre and post visit work, for this date of service. Time listed does not include time spent on separately billable services. Medical Decision Making Chronic conditions NOT treated during this visit that affected my overall medical decision making: [] (more content not included)... Normal [facility] Provider Letteron 04-02-2022 Provider Letter RUSTY Whitney [address] [place] [address] Re: Carleen Burns Date of Visit: 04/02/2022 Dear Estelle OJEDA, Let me know if you have any questions or concerns. Sincerely, MIGUEL Yung MD Providers: The following document(s) were included in the letter: April 02, 2022 16:09:03 EDT - (04/02/2022) Neurosurgery Office Visit Note Normal [facility] Operative Reporton 2 Operative Report Indication for Surgery Intractable and chronic left S1 radiculopathy secondary to large intra annular disc herniation left L5-S1 paramedian Preoperative Diagnosis HERNIATED NUCLEUS PULPOSUS LEFT L5-S1, INTRACTABLE RADICULOPATHY Postoperative Diagnosis Same Operation Left L5-S1 lumbar microdiscectomy; minimally invasive surgical technique using Lolly Wolly Doodle Metrix tubular retractor 6 cm x 22 mm; microscope for microdissection Surgeon(s) Alan RIVERA MD, Ravi Tafoya (Surgeon - Primary) Triage Nurse Althea Rawls PA-C (Production Assembly Supervisor) Anesthesia General Radha ALAB, Tianna Mo (Surveying Or Spatial Science Technician) Lisette Hackett (Provider) Estimated Blood Loss 5.0 mL Urine Output None Findings Sizable disc protrusion with significant ventral impingement of the left S1 nerve root Specimen(s) None-grossly normal degenerated disc Complications None Technique History: Very pleasant 56-year-old female presents with a 6-month history of progressively worsening classic S1 radiculopathy left side. The pain is become difficult enough that she is beset by pain at all times and all positions. She has transient benefit from changing positions, only to be accommodated by escalating pain in the left gluteal region, hamstring, gastrocnemius with paresthesias in S1 dermatome. The patient is currently on a prednisone pulse with limited benefit. Oral prescription NSAIDs provided no significant benefit. The patient has not had physical therapy nor steroid injection but is scheduled for a visit with pain management in the near future. The patient's examination reveals no evidence of hyperreflexia but reveals an absent Achilles reflex left side. No motor neuropathy is appreciated though she has some giveaway power due to pain aversion. She has a strongly positive straight leg raise on the left and a reverse straight leg raise on the right consistent with neurotension. Imaging demonstrates a sizable disc protrusion left L5-S1 paramedian leading to obvious impaction of the S1 nerve root. Otherwise, spinal canal is widely patent and no other pathologic process such as neoplasia or infection is seen Based on patient presentation, the patient is educated regarding the pathophysiology of degenerative disc disease, it is noted that while further conservative measures may afford some benefit through pain control, the patient's imaging and clinical condition as seen on the visit today would indicate that physical therapy and other physical modalities would be of limited benefit or would even exacerbate her pain. Pain management is reasonable to consider but given the size of her disc protrusion which is quite sizable, it is anticipated that she will continue to have pain in spite of injection or will only have transient benefit. Alternatively, minimally invasive microdiscectomy is offered as an outpatient. She is made aware of the surgical technique and postoperative restrictions and expected recovery. She is also educated as to the risk of procedure including the risk of procedure including infection, bleeding, CSF leak, neurologic injury, neuropathic pain syndrome, peridural fibrosis, failure for improvement, incomplete benefit, new neurologic deficit, spinal instability, coma, , paralysis, deep venous thrombosis, pulmonary embolism as well as recurrent disc herniation and reoperation, either delayed or acute. Is particular highlighted the possibility of recurrent disc herniation. This surgeon conducted directed history, physical, review of imaging and performed full surgical consent. Patient is grateful and wishes to proceed Procedure: Patient is brought into the operating room and general anesthetic is induced through atraumatically placed endotracheal tube. Venous access is secured and patient was turned onto awaiting Chambers operative table with a Kevin frame and placed in the prone position. Head and neck are placed in neutral position and arms are placed on arm boards with neurovascular bundles unencumbered. Lumbar region is cleaned with alcohol and dried and 18-gauge spinal needles placed adjacent to level of interest. Flouroscopy is confirmatory for level and proposed skin incision is scribed 1.3 cm to the left of midline straddling the L5 and S1 interspace. No excess hair is clipped with electric clippers as not required. Patient received IV antibiotics. Surgical region is prepped and draped in usual fashion. After appropriate side, site, patient identified in timeout maneuver is performed, full-thickness skin incision is carried down to the thoracolumbar fascia using 10 bladed knife and monopolar cautery. Fascia is incised using cutting current monopolar cautery. Blunt end of the K wire is passed to the interlaminar space of L5-S1, left side. Serial dilation using Metrix dilators is then performed until a 6 cm ? 22 mm diameter tubular retractor can be docked at the lamino- facet complex of L5-S1, left side. This is attached to table mounted Armature. Muscular pl (more content not included)... Normal [facility] Provider Letteron 03-12-2022 Provider Letter RUSTY Whitney [address] [place] [address] Re: Carleen Burns Date of Visit: 03/12/2022 Dear Estelle OJEDA, Let me know if you have any questions or concerns. Sincerely, MIGUEL Yung MD Providers: The following document(s) were included in the letter: March 12, 2022 11:19:37 EDT - (03/12/2022) Neurosurgery operative note Normal [facility] .UA Microscp Aon 03-10-2022 UA Bacteria Present Abnormal Absent [facility] Comment on above: Performed By: #### . Urinalysis Microscopic Auto ####[address] [address] UA Mucus Present Abnormal Absent [facility] Comment on above: Performed By: #### . Urinalysis Microscopic Auto ####[address] [address] UA RBC Quant 3 /HPF Normal 0-5 [facility] Comment on above: Performed By: #### . Urinalysis Microscopic Auto ####[address] [address] UA Squepi Cells Quant 1 /HPF Normal 0-29 [facility] Comment on above: Performed By: #### . Urinalysis Microscopic Auto ####[address] [address] UA WBC Quant 1 /HPF Normal 0-5 [facility] Comment on above: Performed By: #### . Urinalysis Microscopic Auto ####[address] [address] .eGFRon 03-10-2022 GFR/1.73 sq M.predicted MDRD (S/P/Bld) [Vol rate/Area] mL/min/{1.73_m2} Normal >=60 [facility] Comment on above: Result Comment: [facility] have implemented the eGFR calculation approach that does not have a coefficient for race and that conforms to the NKF-ASN Task Force Recommendations. Stages of Chronic Kidney Disease GFR Stage 3a Mild to moderate loss of kidney function 59 to 45 Stage 3b Moderate to severe loss of kidney function 44 to 33 Stage 4 Severe loss of kidney function 29 to 15 Stage 5 Kidney failure Less than 15 GFR calculated using the CKD-Epi Creatinine Equation (2020): eGFR = 142 X min(SCr/?, 1)? X max(SCr /?, 1)-1.200 X 0.9938Age X 1.012 [if female] Abbreviations/Units: eGFR (estimated glomerular filtration rate) = mL/min/1.73 m2 SCr (standardized serum creatinine) = mg/dL ? = 0.7 (females) or 0.9 (males) ? = -0.241 (females) or -0.302 (males) min = indicates the minimum of SCr/? or 1 max = indicates the maximum of SCr/? or 1 Age = years Performed By: #### E GFR ####[place] [address] ABO/Rhon 03-10-2022 ABO/Rh SD 03/12 ABO/Rh: B POS Normal [facility] Comment on above: Performed By: #### A BORH ####[facility] (DEFAULT)[address] [place], [place] [id number] [address] ABSC Autoon 03-10-2022 ABSC Auto Negative Normal [facility] Comment on above: Performed By: #### A SA ####[place] [address] CBC w/ Diffon 03-10-2022 Erythrocyte distribution width (RBC) [Ratio] 13.0 % Normal 11.6-14.8 [facility] Comment on above: Performed By: #### C BC ####[place] [id number] Hematocrit (Bld) [Volume fraction] 43.0 % Normal 36.0-46.0 [facility] Comment on above: Performed By: #### C BC ####[place] [id number] Hemoglobin (Bld) [Mass/Vol] 14.4 g/dL Normal 12.0-16.0 [facility] Comment on above: Performed By: #### C BC ####[address] [address] MCH (RBC) [Entitic mass] 30.8 pg Normal 27.0-35.0 [facility] Comment on above: Performed By: #### C BC ####[address] [address] MCHC 33.6 % Normal 31.0-37.0 [facility] Comment on above: Performed By: #### C BC ####[address] [address] MCV (RBC) [Entitic vol] 91.9 fL Normal 80.0-100.0 [facility] Comment on above: Performed By: #### C BC ####[address] [address] Platelet 423 x10*3/mcL High 150-350 [facility] Comment on above: Performed By: #### C BC ####[address] [address] Platelet mean volume (Bld) [Entitic vol] 7.3 fL Normal 6.7-10.6 [facility] Comment on above: Performed By: #### C BC ####[address] [address] RBC 4.67 x10*6/mcL Normal 3.80-5.20 [facility] Comment on above: Performed By: #### C BC ####[address] [address] WBC 11.2 x10*3/mcL High 4.5-11.0 [facility] Comment on above: Performed By: #### C BC ####[address] [address] CMPon 03-10-2022 Albumin [Mass/Vol] 4.5 g/dL Normal 3.2-4.9 [facility] Comment on above: Performed By: #### C OMP ####[address] [address] Albumin/Globulin [Mass ratio] 1.3 {ratio} Normal 1.1-2.2 [facility] Comment on above: Performed By: #### C OMP ####[address] [address] Alk Phos 76 IU/L Normal 32-91 [facility] Comment on above: Performed By: #### C OMP ####[address] [address] ALT [Catalytic activity/Vol] 38 U/L Normal 14-54 [facility] Comment on above: Performed By: #### C OMP ####[address] [address] Anion gap [Moles/Vol] 10 mmol/L Normal 7-17 [facility] Comment on above: Performed By: #### C OMP ####[address] [address] AST [Catalytic activity/Vol] 30 U/L Normal 15-41 [facility] Comment on above: Performed By: #### C OMP ####[address] [address] Bili Total 0.6 mg/dL Normal 0.3-1.2 [facility] Comment on above: Performed By: #### C OMP ####[address] [address] Calcium [Mass/Vol] 9.4 mg/dL Normal 8.5-10.3 [facility] Comment on above: Performed By: #### C OMP ####[address] [address] Chloride [Moles/Vol] 95 mmol/L Low 98-110 [facility] Comment on above: Performed By: #### C OMP ####[address] [address] CO2 [Moles/Vol] 32 mmol/L Normal 22-32 [facility] Comment on above: Performed By: #### C OMP ####[address] [address] Creatinine [Mass/Vol] 0.98 mg/dL Normal 0.44-1.03 [facility] Comment on above: Performed By: #### C OMP ####[address] [address] Glucose [Mass/Vol] 167 mg/dL High 70-99 [facility] Comment on above: Performed By: #### C OMP ####[address] [address] Potassium [Moles/Vol] 3.5 mmol/L Normal 3.4-4.8 [facility] Comment on above: Performed By: #### C OMP ####[address] [address] Protein [Mass/Vol] 7.9 g/dL Normal 6.5-8.1 [facility] Comment on above: Performed By: #### C OMP ####[address] [address] Sodium [Moles/Vol] 134 mmol/L Normal 133-142 [facility] Comment on above: Performed By: #### C OMP ####[address] [address] Urea nitrogen [Mass/Vol] 22 mg/dL Normal 8-26 [facility] Comment on above: Performed By: #### C OMP ####[address] [address] Urea nitrogen/Creatinine [Mass ratio] 22.4 mg/mg High 10.0-20.0 [facility] Comment on above: Performed By: #### C OMP ####[address] [address] Diff Autoon 03-10-2022 Baso Absolute 0.1 x10*3/mcL Normal 0.0-0.2 [facility] Comment on above: Performed By: #### . Automated Diff ####[address] [address] Basophils/100 WBC (Bld) 0.6 % Normal 0.0-1.5 [facility] Comment on above: Performed By: #### . Automated Diff ####[address] [address] Eos Absolute 0.1 x10*3/mcL Normal 0.0-0.4 [facility] Comment on above: Performed By: #### . Automated Diff ####[address] [address] Eosinophils/100 WBC (Bld) 0.7 % Normal 0.0-5.4 [facility] Comment on above: Performed By: #### . Automated Diff ####[address] [address] Lymph Absolute 4.5 x10*3/mcL Normal 1.0-4.8 [facility] Comment on above: Performed By: #### . Automated Diff ####[address] [address] Lymphocytes/100 WBC (Bld) 40.3 % Normal 27.2-40.8 [facility] Comment on above: Performed By: #### . Automated Diff ####[address] [address] [place] Absolute 0.8 x10*3/mcL Normal 0.1-1.1 [facility] Comment on above: Performed By: #### . Automated Diff ####[address] [address] Monocytes/100 WBC (Bld) 7.1 % Normal 3.7-11.9 [facility] Comment on above: Performed By: #### . Automated Diff ####[address] [address] Neutro Absolute 5.8 x10*3/mcL Normal 1.8-7.7 [facility] Comment on above: Performed By: #### . Automated Diff ####[place] [address] [place] [address] Neutro Auto 51.3 % Normal 47.2-70.8 [facility] Comment on above: Performed By: #### . Automated Diff ####[facility] [place] [address] Neurosurgery Office/Clinic N oteon 03-10-2022 Neurosurgery Office/Clinic Note Chief Complaint Patient is being seen for back. Physical Exam Additional Vitals No qualifying data available. Assessment/Plan 1. Lumbar disc herniation with radiculopathy Very pleasant 56-year-old female presents with a 6-month history of progressively worsening classic S1 radiculopathy left side. The pain is become difficult enough that she is beset by pain at all times and all positions. She has transient benefit from changing positions, only to be accommodated by escalating pain in the left gluteal region, hamstring, gastrocnemius with paresthesias in S1 dermatome. The patient is currently on a prednisone pulse with limited benefit. Oral prescription NSAIDs provided no significant benefit. The patient has not had physical therapy nor steroid injection but is scheduled for a visit with pain management in the near future. The patient's examination reveals no evidence of hyperreflexia but reveals an absent Achilles reflex left side. No motor neuropathy is appreciated though she has some giveaway power due to pain aversion. She has a strongly positive straight leg raise on the left and a reverse straight leg raise on the right consistent with neurotension. Imaging demonstrates a sizable disc protrusion left L5-S1 paramedian leading to obvious impaction of the S1 nerve root. Otherwise, spinal canal is widely patent and no other pathologic process such as neoplasia or infection is seen Based on patient presentation, the patient is educated regarding the pathophysiology of degenerative disc disease, it is noted that while further conservative measures may afford some benefit through pain control, the patient's imaging and clinical condition as seen on the visit today would indicate that physical therapy and other physical modalities would be of limited benefit or would even exacerbate her pain. Pain management is reasonable to consider but given the size of her disc protrusion which is quite sizable, it is anticipated that she will continue to have pain in spite of injection or will only have transient benefit. Alternatively, minimally invasive microdiscectomy is offered as an outpatient. She is made aware of the surgical technique and postoperative restrictions and expected recovery. She is also educated as to the risk of procedure including the risk of procedure including infection, bleeding, CSF leak, neurologic injury, neuropathic pain syndrome, peridural fibrosis, failure for improvement, incomplete benefit, new neurologic deficit, spinal instability, coma, , paralysis, deep venous thrombosis, pulmonary embolism as well as recurrent disc herniation and reoperation, either delayed or acute. Is particular highlighted the possibility of recurrent disc herniation. The patient feels somewhat overwhelmed and would like to speak with her boyfriend with regards to options. She is made aware that if she wishes to have surgery with this surgeon, it will either have to be later in this week or in a week and a half after the surgeon returns from vacation. Alternatively, she can meet with Dr. Ortega next week for consideration of surgery to be scheduled later in next week. In the interim, she will refrain from NSAIDs. The patient will also be removed from work duties given her escalated pain. This surgeon conducted directed history, physical, review of imaging and performed full surgical consent. Patient is grateful and will call with her decision making Medical Decision Making Chronic conditions NOT treated during this visit that affected my overall medical decision making: [] Treatment plans discussed but not opted for at this time: [] Prescribed medication that requires intensive monitoring for toxicity: [] I have reviewed the patient?s medication list for medication interactions/contrain dications and/or for upcoming procedures: [yes or no] Time Spent with the Patient I have personally spent [] minutes on this date, directly related to today's patient visit, including pre and post visit work, for this date of service. Time listed does not include time spent on separately billable services. Problem List/Past Medical History Ongoing Hypertension - High blood pressure Historical Abnormal blood cell count Back pain Herniated disc Hyperlipidemia Hypertension Knee pain Lumbosacral spondylosis with radiculopathy Procedure/Surgical History tubal ligation Medications cyclobenzaprine 10 mg oral tablet, Not taking lisinopril-hydroCHLOR Othiazide 20 mg-25 mg oral tablet predniSONE 10 mg oral tablet Tylenol, Oral, 5x/Day Allergies Augmentin (Swelling, Hives) penicillin G benzathine (Itching, Edema, Rash, Hives) Social History Alcohol Current Substance Abuse Denies All Tobacco 5-9 cigarettes (between 1/4 to 1/2 pack)/day in last 30 days Use:. Family History Alcohol abuse: Father. Arthritis: Mother. COPD: Mother. Cancer: Father. Heart disease: Father. High cholesterol: Father. Stroke: Mother. Electronically signed by (more content not included)... Normal [facility] Neurosurgery Office/Clinic Note Chief Complaint Patient is being seen for back. History of Present Illness This is a 56 year old female seen in referral at the request of Estelle Hoang CNP for lumbar radiculopathy. She began having muscle type low back pain in September 2021. She had tried a chiropractor which actually made her pain worse. She developed pain down the left lower extremity about 1-1/2 months ago. The low back pain is intermittent, burning and aching. It radiates into the left posterior hip/buttocks. That pain is constant, sharp and 8?10 in severity. The pain radiates into the left hamstring and calf with numbness and tingling as well. She has trouble walking at times due to the pain. The pain is worse with bending and lifting as well. When her pain is severe, she states she has trouble urinating, she needs to strain to initiate the stream. She denies any numbness in the perineal area, no incontinence, no bowel issues. Back: Intermittent pain since 09/2021, worse over the last 1-1/2 months. Pain into the left posterior hip and buttocks is constant, that is the worst pain. Pain is 8/10, sharp. Legs: Pain x 1-1/2 months into left hamstring and calf with numbness and tingling. LBP=leg pain. No symptoms on the right Conservative treatments: Chiropractor, tizanidine, ibuprofen, TENS, ice, heat, home exercises and stretching. Currently on a prednisone taper. Medical history: as listed Social history: Has a boyfriend. 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 Tobacco use 1/2 PPD, social alcohol, no drug use. Medications: As listed Surgical history: No prior spine surgery Family history: As listed Imaging: MRI lumbar 02/20/2022: L5-S1 large central and left disc herniation causing severe stenosis. X-ray lumbar 01/02/2022: L3-S1 degenerative changes. Review of Systems General Adult ROS Fatigue: Yes Weakness: Yes Cardiovascular Chest pain/pressure: No Edema: No Palpitations: No EENMT Hearing loss: No Vision Changes: No Gastrointestinal Abdominal pain: No Constipation: No Diarrhea: No Fecal incontinence: No Genitourinary Urgency: No Hematologic/Lymphatic Musculoskeletal Back pain: Yes Neurological Numbness: Yes Psychiatric Anxiety: No Depression: No Respiratory Cough: No Shortness of breath: No Snoring: No Wheezing: No Skin Rash: No Physical Exam Additional Vitals No qualifying data available. General: Alert and oriented, well nourished, no acute distress. Eye: Normal conjunctiva, no scleral icterus. HENT: Normocephalic, atraumatic, oral mucosa pink and moist, dentition intact. Neck: Supple. Pulmonary: Clear to auscultation, non-labored respiration. Cardiovascular: Normal rate, regular rhythm, no murmur, no edema. Abdomen: Soft, nontender Skin: Normal temperature and texture. Psychiatric: Appropriate judgment and insight, appropriate mood and affect. NEURO EXAM: Pupils are equal bilaterally and reactive to light. No eye deviation at primary gaze. Extraocular movements are full. Face is symmetric, facial sensation intact, tongue midline Hearing is intact to finger rub Motor: Upper Extremity Strength: 5/5 Lower Extremity Strength: 5/5 Reflexes: Reflexes of the upper extremities are 2+ Reflexes of the lower extremities are 1+ patella, Achilles on the right, absent Achilles on the left Steiner?s sign is negative. No clonus. Sensation: Grossly intact to light touch throughout except left posterior lateral thigh and calf decreased Gait: She sits leaning to the right. Gait is with a limp. She has difficulty walking on toes and heels with assist Musculoskeletal: Spine: no visible deformities or step offs SLR positive to 30 degrees on the left Minimal tenderness to palpation of the midline lumbar spine Assessment/Plan Assessment: 1. Low back pain with left radiculopathy, worse over the last 1-1/2 months. LBP=leg pain 2. MRI lumbar 02/20/2022: L5-S1 large central and left disc herniation causing severe stenosis. 3. X-ray lumbar 01/02/2022: L3-S1 degenerative changes. 4. Tobacco use, 1/2 PPD Plan: 1. Off work note for 2 weeks 2. She will call us with her treatment decision We reviewed the imaging together in the office. Dr. Phillips also examined her and discussed options including surgery or pain management for injections. She would like time to speak with her boyfriend. She will call us back in the next couple of days with her treatment decision. All questions were answered. Time Spent with the Patient I have personally spent 58 minutes on this date, directly related to today's patient visit, including pre and post visit work, for this date of service. Time listed does not include time spent on separately billable services. Problem List/Past Medical History Ongoing No qualifying data Historical Abnormal blood cell count Back pain Herniated disc Hyperlipidemia Hypertension Knee pain Lumbosacral spondylosis with radiculopathy Procedure/Surgical Hi (more content not included)... Normal [facility] PTon 03-10-2022 INR Coag (PPP) [Relative time] 1.0 {INR} Normal <=3.5 [facility] Comment on above: Result Comment: INR has no normal range. INR Therapeutic range is: 2.0-3.0 (AF, CVA, TIAs, DVT prophylaxis, acute DVT) 2.5-3.5 ([facility] heart valves, recurrent thrombosis/emboli) Performed By: #### P TINR ####[address] [address] PT Coag (PPP) [Time] 10.1 s Normal 8.9-11.8 [facility] Comment on above: Performed By: #### P TINR ####[address] [address] PTTon 03-10-2022 aPTT Coag (Bld) [Time] 22.9 s Normal 20.7-28.3 [facility] Comment on above: Performed By: #### P TT ####[address] [address] Provider Letteron 03-10-2022 Provider Letter RUSTY Whitney [address] [place] [address] Re: Carleen Burns Date of Visit: 03/10/2022 Dear Estelle OJEDA, Thank you for your referral and allowing me to contribute to the care of your patient: BebetoLichaCarleenvictor m Vazquez. Attached is my office note where you will find my assessment and recommendations from our encounter. My office?s contact information: [facility] [address] [place], [phone] Let me know if you have any questions or concerns. Sincerely, DOMINICK Montoya Providers: The following document(s) were included in the letter: March 10, 2022 09:01:44 EDT - (03/10/2022) Neurosurgery Office Visit Note Normal [facility] Provider Letter Estelle Hoang APRN-LUIS EDUARDO [address] [place] [address] Re: Carleen Bebeto Date of Visit: 03/10/2022 Dear Estelle Hoang APRN-LUIS EDUARDO, Let me know if you have any questions or concerns. Sincerely, MIGUEL Yung MD Providers: The following document(s) were included in the letter: March 10, 2022 10:14:24 EDT - (03/10/2022) Neurosurgery Office Visit Note Normal [facility] UA w Culture if Indon 2021 Color (U) Light-Yellow Normal [facility] Comment on above: Performed By: #### U CI ####[address] [address] Ketones Ql (U) Negative Normal Negative [facility] Comment on above: Performed By: #### U CI ####[address] [address] UA Blood Negative Normal Negative [facility] Comment on above: Performed By: #### U CI ####[address] [address] UA Clarity Clear Normal [facility] Comment on above: Performed By: #### U CI ####[address] [address] UA Glucose Normal Normal Negative [facility] Comment on above: Performed By: #### U CI ####[address] [address] UA Leukocyte Esterase Negative Normal Negative [facility] Comment on above: Performed By: #### U CI ####[address] [address] UA Nitrite Negative Normal Negative [facility] Comment on above: Performed By: #### U CI ####[address] [address] UA pH 6.5 Normal 4.5 - 7.8 [facility] Comment on above: Performed By: #### U CI ####[address] [address] UA Protein Negative Normal Negative [facility] Comment on above: Performed By: #### U CI ####[address] [address] UA Source Clean Catch Normal [facility] Comment on above: Performed By: #### U CI ####[address] [address] UA Spec Grav 1.019 Normal 1.003-1.035 [facility] Comment on above: Performed By: #### U CI ####[address] [address] UA Urobilinogen Normal Normal 0.2 - 1.0 [facility] Comment on above: Performed By: #### U CI ####[address] [address] Urobilinogen (U) [Mass/Vol] Negative Normal Negative [facility] Comment on above: Performed By: #### U CI ####[place] [id number] CBC with Auto Differentialon 02-04-2022 Absolute Eos # 0.31 [facility] Absolute Immature Granulocyte <0.03 [facility] Absolute Lymph # 3.02 [facility] Absolute [place] # 1.00 [facility] Basophils (Bld) [#/Vol] 0.07 10*3/uL [facility] Basophils/100 WBC (Bld) 1 % 0 - 2 % [facility] Eosinophils/100 WBC (Bld) 4 % 1 - 4 % [facility] Hematocrit (Bld) [Volume fraction] 38.5 % 36.3 - 47.1 % [facility] Hemoglobin (Bld) [Mass/Vol] 12.5 g/dL 11.9 - 15.1 g/dL [facility] Immature granulocytes/100 WBC (Bld) 0 % 0 [facility] Lymphocytes/100 WBC (Bld) 37 % 24 - 43 % [facility] MCH (RBC) [Entitic mass] 31.6 pg 25.2 - 33.5 pg [facility] MCHC (RBC) [Mass/Vol] 32.5 g/dL 28.4 - 34.8 g/dL [facility] MCV (RBC) [Entitic vol] 97.2 fL 82.6 - 102.9 fL [facility] Monocytes/100 WBC (Bld) 12 % 3 - 12 % [facility] NRBC Automated 0.0 0.0 per 100 WBC [facility] Platelet distribution width (Bld) [Ratio] 13.0 % 11.8 - 14.4 % [facility] Platelet mean volume (Bld) [Entitic vol] 8.6 fL 8.1 - 13.5 fL [facility] Platelets (Bld) [#/Vol] 363 10*3/uL [facility] RBC (Bld) [#/Vol] 3.96 10*6/uL 3.95 - 5.1 1 m/uL [facility] Segmented neutrophils/100 WBC (Bld) 46 % 36 - 65 % [facility] Segs Absolute 3.82 [facility] WBC (Bld) [#/Vol] 8.2 10*3/uL [facility] CBC with Auto Differentialon 01-02-2022 Absolute Eos # 0.00 [facility] Absolute Immature Granulocyte 0.00 [facility] Absolute Lymph # 2.08 [facility] Absolute [place] # 1.44 High [facility] Basophils (Bld) [#/Vol] 0.00 10*3/uL [facility] Basophils/100 WBC (Bld) 0 % 0 - 2 % [facility] Eosinophils/100 WBC (Bld) 0 % Low 1 - 4 % [facility] Hematocrit (Bld) [Volume fraction] 44.1 % 36.3 - 47.1 % [facility] Hemoglobin (Bld) [Mass/Vol] 14.6 g/dL 11.9 - 15.1 g/dL [facility] Immature granulocytes/100 WBC (Bld) 0 % 0 [facility] Interpretation and review of laboratory results Abnormal [facility] Lymphocytes/100 WBC (Bld) 13 % Low 24 - 43 % [facility] MCH (RBC) [Entitic mass] 30.9 pg 25.2 - 33.5 pg [facility] MCHC (RBC) [Mass/Vol] 33.1 g/dL 28.4 - 34.8 g/dL [facility] MCV (RBC) [Entitic vol] 93.4 fL 82.6 - 102.9 fL [facility] Monocytes/100 WBC (Bld) 9 % 3 - 12 % [facility] Morphology Joshua (Bld) [Interp] ANISOCYTOSIS PRESENT [facility] Morphology Joshua (Bld) [Interp] Platelet clumps present, count appears increased. [facility] NRBC Automated 0.0 0.0 per 100 WBC [facility] Platelet distribution width (Bld) [Ratio] 12.7 % 11.8 - 14.4 % [facility] Platelet mean volume (Bld) [Entitic vol] 8.7 fL 8.1 - 13.5 fL [facility] Platelets (Bld) [#/Vol] 494 10*3/uL High [facility] RBC (Bld) [#/Vol] 4.72 10*6/uL 3.95 - 5.1 1 m/uL [facility] Segmented neutrophils/100 WBC (Bld) 78 % High 36 - 65 % [facility] Segs Absolute 12.48 High [facility] WBC (Bld) [#/Vol] 16.0 10*3/uL High [facility] Comprehensive Metabolic Pane niall 01-02-2022 Albumin [Mass/Vol] 5.2 g/dL 3.5 - 5.2 g/dL [facility] Albumin/Globulin [Mass ratio] 1.9 {ratio} [facility] ALP (Bld) [Catalytic activity/Vol] 100 U/L 35 - 104 U/L [facility] ALT [Catalytic activity/Vol] 45 U/L High 5 - 33 U/L [facility] Anion gap [Moles/Vol] 10 mmol/L 9 - 17 mmol/L [facility] AST [Catalytic activity/Vol] 41 U/L High <32 [facility] Bilirubin [Mass/Vol] 0.32 mg/dL 0.3 - 1.2 mg/dL [facility] Calcium [Mass/Vol] 10.1 mg/dL 8.6 - 10. 4 mg/dL [facility] Chloride [Moles/Vol] 95 mmol/L Low 98 - 107 mmol/L [facility] CO2 [Moles/Vol] 32 mmol/L High 20 - 31 mmol/L [facility] Creatinine [Mass/Vol] 0.7 mg/dL 0.50 - 0.90 mg/dL [facility] Free PSA/Total PSA [Mass fraction] 8.0 g/dL 6.4 - 8.3 g/dL [facility] GFR >60 >60 mL/min [facility] GFR Non- >60 >60 mL/min [facility] Glucose [Mass/Vol] 101 mg/dL High 70 - 99 mg/dL [facility] Interpretation and review of laboratory results Abnormal [facility] Potassium [Moles/Vol] 4.2 mmol/L 3.7 - 5.3 mmol/L [facility] Sodium [Moles/Vol] 137 mmol/L 135 - 144 mmol/L [facility] Urea nitrogen (BldV) [Mass/Vol] 19 mg/dL 6 - 20 mg/dL [facility] Urea nitrogen/Creatinine (Bld) [Mass ratio] 27 High [facility] Laboratory - Chemistry and C hemistry - challengeon 01-02-2022 GFR/1.73 sq M.predicted MDRD (S/P/Bld) [Vol rate/Area] [facility] Comment on above: Average GFR for 50-5 9 years old: 93 mL/min/1.73sq m Chronic Kidney Disease: <60 mL/min/1.73sq m Kidney failure: <15 mL/min/1.73sq m eGFR calculated using average adult body mass. Additional eGFR calculator available at: http://www.[employer]/multiple_crcl_2012.htm Stage 1: Some kidney damage normal GFR Stage 2: Mild kidney damage GFR 60-89 Stage 3: Moderate kidney damage GFR 30-59 Stage 4: Severe kidney damage GFR 15-29 Stage 5: Severe kidney damage GFR <15 ESRD - chronic treatment by dialysis or transplant Lipid Panelon 01-02-2022 Cholesterol [Mass/Vol] 286 mg/dL High <200 [facility] Comment on above: Cholesterol Guidelines: <200 Desirable 200-240 Borderline >240 Undesirable Cholesterol in HDL [Mass/Vol] 100 mg/dL >40 [facility] Comment on above: HDL Guidelines: <40 Undesirable 40-59 Borderline >59 Desirable Cholesterol in LDL [Mass/Vol] 163 mg/dL High 0 - 130 mg/dL [facility] Comment on above: LDL Guidelines: <100 Desirable 100-129 Near to/above Desirable 130-159 Borderline >159 Undesirable Direct (measured) LDL and calculated LDL are not interchangeable tests. Cholesterol.total/C holesterol in HDL [Mass ratio] 2.9 {ratio} <5 [facility] Interpretation and review of laboratory results Abnormal [facility] Triglyceride [Mass/Vol] 116 mg/dL <150 [facility] Comment on above: Triglyceride Guidelines: <150 Desirable 150-199 Borderline 200-499 High >499 Very high Based on AHA Guidelines for fasting triglyceride, May 2012. [facility] Urinalysis with Microscopico n 01-02-2022 - [facility] Bacteria, UA TRACE Abnormal None [facility] Bilirubin Urine Negative NEGATIVE [facility] Color, UA Yellow Yellow [facility] Epithelial Cells UA 0 TO 2 [facility] Glucose, Ur Negative NEGATIVE [facility] Interpretation and review of laboratory results Abnormal [facility] Ketones Ql (U) Negative NEGATIVE [facility] Leukocyte esterase Test strip Ql (U) Negative NEGATIVE [facility] Nitrite, Urine Negative NEGATIVE [facility] pH, UA 6.0 [facility] Protein, UA Negative NEGATIVE [facility] RBC, UA 0 TO 2 [facility] Specific [place], UA <1.005 Low [facility] Turbidity UA Clear Clear [facility] Urine Hgb Negative NEGATIVE [facility] Urobilinogen, Urine Normal Normal [facility] WBC, UA 0 TO 2 [facility] XR LUMBAR SPINE (2-3 VIEWS)o n 01-02-2022 L3 through S1 degenerative changes [facility] EXAMINATION: THREE XRAY VIEWS OF THE LUMBAR SPINE 01/02/2022 12:02 pm COMPARISON: None. HISTORY: ORDERING SYSTEM PROVIDED HISTORY: Low back pain, unspecified back pain laterality, unspecified chronicity, unspecified whether sciatica present FINDINGS: There are 5 lumbar segments There are uncompromised bilateral sacroiliac joints There is moderate L3-4 and moderate to marked L4 through S1 joint space compromise. The remaining disc spaces and vertical heights of the vertebral bodies are maintained There is mild anterior spurring of the L3 through L5 vertebral bodies There is mild L4-5 facet hypertrophy There is no pedicular, pars interarticularis defect, fracture or dislocation seen [facility] Rema Roe M D - 01/02/2022 EXAMINATION: THREE XRAY VIEWS OF THE LUMBAR SPINE 01/02/2022 12:02 pm COMPARISON: None. HISTORY: ORDERING SYSTEM PROVIDED HISTORY: Low back pain, unspecified back pain laterality, unspecified chronicity, unspecified whether sciatica present FINDINGS: There are 5 lumbar segments There are uncompromised bilateral sacroiliac joints There is moderate L3-4 and moderate to marked L4 through S1 joint space compromise. The remaining disc spaces and vertical heights of the vertebral bodies are maintained There is mild anterior spurring of the L3 through L5 vertebral bodies There is mild L4-5 facet hypertrophy There is no pedicular, pars interarticularis defect, fracture or dislocation seen IMPRESSION: L3 through S1 degenerative changes [employer] Phone: Radiology Study observation (narrative) [employer] Phone: XR LUMBAR SPINE (2-3 VIEWS)O rdered By: Rema Roe on 01-02-2022 [employer] [facility] My Info Phone: CBC AUTO DIFFon 06-03-2021 BASO # 0.1 103/ul Normal 0.0-0.1 [facility] Comment on above: Performed By: #### C BC #### [facility] [address] [place] [address] Dr. Estiven Bull Basophils/100 WBC (Bld) 1.0 % Normal 0.2-2.0 [facility] Comment on above: Performed By: #### C BC #### [facility] [address] [place] [address] Dr. Estiven Bull EO # 0.3 103/ul Normal 0.0-0.7 [facility] Comment on above: Performed By: #### C BC #### [facility] [address] [place] [address] Dr. Estiven Bull Eosinophils/100 WBC (Bld) 5.1 % Normal 0.9-7.0 [facility] Comment on above: Performed By: #### C BC #### [facility] [address] [place] [address] Dr. Estiven Bull Erythrocyte distribution width (RBC) [Ratio] 12.4 % Normal 11.0-15.0 [facility] Comment on above: Performed By: #### C BC #### [facility] [address] [place] [address] Dr. Estiven Bull Hematocrit (Bld) [Volume fraction] 41.2 % Normal 36.0-48.0 [facility] Comment on above: Performed By: #### C BC #### [facility] [address] [place] [address] Dr. Estiven Bull Hemoglobin (Bld) [Mass/Vol] 13.1 g/dL Normal 12.0-16.0 [facility] Comment on above: Performed By: #### C BC #### [facility] [address] [place] [address] Dr. Estiven Bull IG # 0.01 10e3/ul Normal 0.00-0.03 [facility] Comment on above: Performed By: #### C BC #### [facility] [address] [place] [address] Dr. Estiven Bull IG % 0.2 % Normal 0.0-0.5 [facility] Comment on above: Performed By: #### C BC #### [facility] [address] [place] [address] Dr. Estiven Bull LYMPH # 2.0 103/ul Normal 1.2-3.8 [facility] Comment on above: Performed By: #### C BC #### [facility] [address] [place] [address] Dr. Estiven Bull Lymphocytes/100 WBC (Bld) 32.0 % Normal 20.5-60.0 [facility] Comment on above: Performed By: #### C BC #### [facility] [address] [place] [address] Dr. Estiven Bull MANUAL DIFF REQ NO Normal [facility] Comment on above: Performed By: #### C BC #### [facility] [address] [place] [address] Dr. Estiven Bull MCH (RBC) [Entitic mass] 30.7 pg Normal 26.7-34.0 [facility] Comment on above: Performed By: #### C BC #### [facility] [address] [place] [address] Dr. Estiven Bull MCHC (RBC) [Mass/Vol] 31.8 g/dL Normal 29.9-35.2 [facility] Comment on above: Performed By: #### C BC #### [facility] [address] [place], [place] [id number] Dr. Estiven Bull MCV (RBC) [Entitic vol] 96.5 fL Normal 81.0-99.0 [facility] Comment on above: Performed By: #### C BC #### [facility] [address] [place] [address] Dr. Estiven Bull MONO # 0.6 103/ul Normal 0.3-0.8 [facility] Comment on above: Performed By: #### C BC #### [facility] [address] [place] [address] Dr. Estiven Bull Monocytes/100 WBC (Bld) 10.2 % Normal 1.7-12.0 [facility] Comment on above: Performed By: #### C BC #### [facility] [address] [place] [address] Dr. Estiven Bull NEUT # 3.2 103/ul Normal 1.4-6.5 [facility] Comment on above: Performed By: #### C BC #### [facility] [address] [place] [address] Dr. Estiven Bull Neutrophils/100 WBC (Bld) 51.5 % Normal 43.0-75.0 [facility] Comment on above: Performed By: #### C BC #### [facility] [address] [place] [address] Dr. Estiven Bull Platelet mean volume (Bld) [Entitic vol] 9.6 fL Normal 9.5-13.5 [facility] Comment on above: Performed By: #### C BC #### [facility] [address] [place] [address] Dr. Estiven Bull PLT 379 103/ul Normal 150-450 [facility] Comment on above: Performed By: #### C BC #### [facility] [address] [place] [address] Dr. Estiven Bull RBC 4.27 106/ul Normal 4.20-5.40 [facility] Comment on above: Performed By: #### C BC #### [facility] [address] [place] [address] Dr. Estiven Bull WBC 6.1 103/ul Normal 4.0-11.0 [facility] Comment on above: Performed By: #### C BC #### [facility] [address] [place], [place] [address] Dr. Estiven Bull LIPID PROFILEon 06-03-2021 CHOL-HDL RATIO NORM SEE BELOW Normal [facility] Comment on above: Result Comment: 3.3 - 4.4 LOW RISK 4.4 - 7.1 AVERAGE RISK 7.1 - 11.0 MODERATE RISK >11.0 HIGH RISK Performed By: #### L IPID, CMP #### [facility] [address] [place], [place] [address] Dr. Estiven Bull Cholesterol [Mass/Vol] 261 mg/dL Critically high <=200 [facility] Comment on above: Performed By: #### L IPID, CMP #### [facility] [address] [place] [address] [address] Estiven Bull Cholesterol in HDL [Mass/Vol] 101 mg/dL Normal [facility] Comment on above: Performed By: #### L IPID, CMP #### [facility] [address] [place], [place] [address] Dr. Estiven Bull Cholesterol in LDL [Mass/Vol] 143.0 mg/dL Normal [facility] Comment on above: Performed By: #### L IPID, CMP #### [facility] [address] [place], [place] [address] Dr. Estiven Bull Cholesterol.total/C holesterol in HDL [Mass ratio] 2.6 {ratio} Normal [facility] Comment on above: Performed By: #### L IPID, CMP #### [facility] [address] [place], [place] [address] Dr. Estiven Bull HDL NORMAL > or = 60 mg/dl - LO W CARDIOVASCULAR RISK <40 mg/dl - HIGH CARDIOVASCULAR RISK Normal [facility] Comment on above: Performed By: #### L IPID, CMP #### [facility] [address] [place], [place] [address] Dr. Estiven Bull LDL CALC NORMAL SEE BELOW Normal [facility] Comment on above: Result Comment: <100 mg/dl OPTIMAL 100 - 129 mg/dl NEAR OR ABOVE OPTIMAL 130 - 159 mg/dl BORDERLINE HIGH 160 - 189 mg/dl HIGH >190 mg/dl VERY HIGH Performed By: #### L IPID, CMP #### [facility] [address] [place] [address] Dr. Estiven Bull Triglyceride [Mass/Vol] 85 mg/dL Normal <=150 [facility] Comment on above: Performed By: #### L IPID, CMP #### [facility] [address] [place] [address] Dr. Estiven Bull VLDL CALC 17.0 mg/dL Normal [facility] Comment on above: Performed By: #### L IPID, CMP #### [facility] Laboratory [address] [place] [address] Dr. Estiven Bull MICROALBUMIN, RAND URon 110 mALB 0.2 mg/L Normal <=30.0 [facility] Comment on above: Performed By: #### M ALBR #### [facility] [address] [place] [address] Dr. Estiven Bull PROF 14(COMP METB)on 021 Albumin [Mass/Vol] 3.9 g/dL Normal 3.5-5.0 [facility] Comment on above: Performed By: #### L IPID, CMP #### [facility] [address] [place] [address] Dr. Estiven Bull Albumin/Globulin [Mass ratio] 1.1 {ratio} Normal [facility] Comment on above: Performed By: #### L IPID, CMP #### [facility] [address] [place] [address] Dr. Estiven Bull ALP [Catalytic activity/Vol] 98 U/L Normal 38-126 [facility] Comment on above: Performed By: #### L IPID, CMP #### [facility] [address] [place] [address] Dr. Estiven Bull ALT [Catalytic activity/Vol] 26 U/L Normal 9-52 [facility] Comment on above: Performed By: #### L IPID, CMP #### [facility] [address] [address] [address] Estiven Blul Anion gap [Moles/Vol] 13.3 mmol/L Normal [facility] Comment on above: Performed By: #### L IPID, CMP #### [facility] [address] [place] [address] Dr. Estiven Bull AST [Catalytic activity/Vol] 23 U/L Normal 14-36 [facility] Comment on above: Performed By: #### L IPID, CMP #### [facility] [address] [place] [address] Dr. Estiven Bull Bilirubin [Mass/Vol] 0.6 mg/dL Normal 0.2-1.3 [facility] Comment on above: Performed By: #### L IPID, CMP #### [facility] [address] [place] [address] Dr. Estiven Bull Calcium [Mass/Vol] 9.3 mg/dL Normal 8.4-10.2 [facility] Comment on above: Performed By: #### L IPID, CMP #### [facility] [address] [place] [address] Dr. Estiven Bull Chloride [Moles/Vol] 100 mmol/L Normal 98-107 [facility] Comment on above: Performed By: #### L IPID, CMP #### [facility] [address] [place] [address] Dr. Estiven Bull CO2 [Moles/Vol] 29.0 mmol/L Normal 22.0-30.0 [facility] Comment on above: Performed By: #### L IPID, CMP #### [facility] [address] [place] [address] Dr. Estiven Bull Creatinine [Mass/Vol] 0.71 mg/dL Normal 0.52-1.04 [facility] Comment on above: Performed By: #### L IPID, CMP #### [facility] [address] [place] [address] Dr. Estiven Bull EGFR-AF EQUATORIAL GUINEAN >60 Normal >=60 [facility] Comment on above: Performed By: #### L IPID, CMP #### [facility] [address] [address] [address] Estiven Bull EGFR-NON AF EQUATORIAL GUINEAN >60 Normal >=60 [facility] Comment on above: Performed By: #### L IPID, CMP #### [facility] [address] [address] [address] Estiven Bull Globulin (S) [Mass/Vol] 3.7 g/dL Normal [facility] Comment on above: Performed By: #### L IPID, CMP #### [facility] [address] [place] [address] Dr. Esitven Bull Glucose [Mass/Vol] 91 mg/dL Normal 74-106 [facility] Comment on above: Performed By: #### L IPID, CMP #### [facility] [address] [place] [address] Dr. Estiven Bull Potassium [Moles/Vol] 4.3 mmol/L Normal 3.4-5.0 [facility] Comment on above: Performed By: #### L IPID, CMP #### [facility] [address] [place] [address] Dr. Estiven Bull Protein [Mass/Vol] 7.6 g/dL Normal 6.1-8.2 [facility] Comment on above: Performed By: #### L IPID, CMP #### [facility] [address] [place] [address] Dr. Estiven Bull Sodium [Moles/Vol] 138 mmol/L Normal 137-145 [facility] Comment on above: Performed By: #### L IPID, CMP #### [facility] [address] [place] [address] Dr. Estiven Bull Urea nitrogen [Mass/Vol] 17.0 mg/dL Normal 7.0-17.0 [facility] Comment on above: Performed By: #### L IPID, CMP #### [facility] [address] [place] [address] Dr. Estiven Bull Urea nitrogen/Creatinine [Mass ratio] 23.9 mg/mg Normal [facility] Comment on above: Performed By: #### L IPID, CMP #### [facility] [address] [address] [address] Estiven Bull Encounters Encounter Date Encounter Type Care Provider Facility Start: 03-09-2024 End: 03-09-2024 ambulatory CHERRI FITO Not Available Start: 02-08-2024 End: 02-08-2024 ambulatory CHERRI FITO Not Available Start: 01-24-2024 End: 01-24-2024 ambulatory ESTELLE HOANG Not Available Start: 11-09-2023 End: 11-12-2023 [facility] Start: 10-18-2023 End: 10-18-2023 ambulatory ESTELLE VIKTOR Not Available Start: 09-06-2023 End: 09-06-2023 ambulatory ESTELLE VIKTOR Not Available Start: 03-31-2023 End: 04-03-2023 [facility] Start: 02-11-2023 End: 02-12-2023 [facility] Start: 02-11-2023 End: 02-12-2023 Encounter for general adult medical examination without abnormal [facility] Start: 02-11-2023 End: 02-11-2023 Subsequent hospital visit by physician Estelle Hoang Work Phone: [facility] Start: 06-23-2022 End: 06-24-2022 ambulatory MD Ravi Phillips Facility:[facility] Start: 05-07-2022 End: 05-08-2022 ambulatory Estelle Hoang LABOR/EXCAV[facility] Facility:[facility] Start: 04-02-2022 End: 04-03-2022 ambulatory MD Ravi Phillips Facility:[facility] Start: 03-12-2022 End: 03-12-2022 ambulatory MD Ravi Phillips Facility:[facility] Start: 03-11-2022 End: 03-12-2022 ambulatory Estelle Hoang LABOR/EXCAV[facility] Facility:[facility] Start: 03-10-2022 End: 03-11-2022 ambulatory MD Ravi Phillips Facility:[facility] Start: 03-10-2022 End: 03-11-2022 ambulatory Kwasi Rose PA-C Facility:[facility] Start: 02-04-2022 End: 02-04-2022 Subsequent hospital visit by physician Estelle Hoang Work Phone: [facility] Start: 01-02-2022 End: 01-04-2022 Subsequent hospital visit by physician Oz Christie Dr Room 2 [facility] Comment on above: Low back pain, unspe cified back pain laterality, unspecified chronicity, unspecified whether sciatica present Start: 07-03-2021 Encounter for genera l adult medical examination without abnormal findings ASHLEY PARK [facility] Start: 06-03-2021 End: 06-04-2021 ambulatory [facility] ESTELLE HOANG Facility:[facility] Start: 06-03-2021 End: 06-04-2021 Encounter for general adult medical examination without abnormal findings [facility] ESTELLE HOANG Facility:[facility] Procedures Date Procedure Procedure Detail Performing Clinician Start: 02-11-2023 Comprehensive metabo lic panel Estelle Hoang Work Phone: Start: 02-11-2023 Lipid panel Estelle kurtz Work Phone: Start: 02-11-2023 Urnls dip stick/tabl et reagent auto microscopy Estelle Hoang Work Phone: Start: 02-04-2022 Blood count complete auto&auto difrntl wbc Estelle Hoang Work Phone: Start: 01-02-2022 Radex spine lumbosac ral 2/3 views Estelle Hoang Work Phone: Start: 01-02-2022 Comprehensive metabo lic panel Estelle Hoang Work Phone: Start: 01-02-2022 Lipid panel Estelle kurtz Work Phone: Start: 01-02-2022 Urnls dip stick/tabl et reagent auto microscopy Estelle Hoang Work Phone: Start: 06-19-2011 Microscopic observat ion [Identifier] in Cervix by Cyto stain Estelle Viktor Work Phone: Plan of Treatment Date Care Activity Detail Author Start: 01-02-2027 Lipid panel Lipids [facility] Start: 03-31-2023 End: 03-31-2023 Patient encounter procedure 03/31/2023 Appointment Radiology [facility] Start: 03-02-2023 Influenza vaccination Flu vaccine (#1) [facility] Start: 04-02-2022 Influenza vaccination [facility] Start: 01-19-2020 Lipid panel Lipids [facility] Start: 2016 Screening for malignant neoplasm of breast Breast cancer screen [facility] Start: 2016 Shingles vaccine (1 of 2) Shingles vaccine (1 of 2) [facility] Start: 06-19-2014 Screening for malignant neoplasm of cervix [facility] Start: 2011 Screening for malignant neoplasm of colon [facility] Start: 1996 Screening for malignant neoplasm of cervix HPV (without or with Pap) [facility] Start: 1985 DTaP/Tdap/Td vaccine (1 - Tdap) DTaP/Tdap/Td vaccine (1 - Tdap) [facility] Start: 1984 Hepatitis C screening Hepatitis C screen [facility] Start: 1981 HIV screening HIV screen [facility] Start: 1978 Depression Screen Depression Screen [facility] Start: 1972 Pneumococcal 0-64 years Vaccine (1 - PCV) Pneumococcal 0-64 years Vaccine (1 - PCV) [facility] Start: 1971 COVID-19 Vaccine (1) COVID-19 Vaccine (1) [facility] Start: 01-31-1967 COVID-19 Vaccine (#1) COVID-19 Vaccine (#1) [facility] [employer] Payers Date Payer Category Payer Unknown 1965 Unknown [id number] 2.16.84 [id number] 1965 Unknown [id number] 2.16. [id number] 1966 Unknown [id number] 2.16. [id number] 1966 Unknown [id number] 2.16. [id number] 1966 Unknown [id number] 2.16. [id number] 1966 Unknown [id number] 2.16. [id number] 1966 Unknown [id number] 2.16. 840.1.247197.3.579.2.196 1966 Unknown [id number] 2.16. [id number] 1966 Unknown [id number] 2.16. [id number] 1966 Unknown [id number] 2.16.8 40.1.706311.3.579.2.173 1966 Unknown [id number] 2.16.8 40.1.359890.3.579.2.173 1966 Unknown [id number] 2.16.8 40.1.552964.3.579.2.173 1966 Unknown [id number] 2.16.84 0.1.399460.3.579.2.1259 1966 Unknown [id number] 2.16.84 0.1.479612.3.579.2.1259 1966 Unknown [id number] 2.16.84 0.1.540198.3.579.2.1259 1966 Unknown [id number] 2.16.84 0.1.297110.3.579.2.1259 1966 Unknown [id number] 2.16.84 [id number] 1959 Unknown [id number] Social History Date Type Detail Facility [facility]: [facility] Start: 06-19-2011 Cigarettes smoked current (pack per day) - Reported 0.5 [facility] Phone: Start: 06-19-2011 Alcohol intake Current drinke r of alcohol (finding) [facility] Phone: Start: 1965 Sex Assigned At Not on file B ON [employer] Phone: History of tobacco use Cigarette Smoker B ON [employer] Clinical Note 03-17-2022 Note Date & Type Note Facility 03-17-2022 Note CLINICAL HISTORY: In traoperative evaluation. EXAMINATION: A single intraoperative fluoroscopic image of lumbar spine was obtained. Fluoroscopy time: 2 seconds. DOSE: 0.14 mGy FINDINGS: A single intraoperative fluoroscopic image demonstrates localization at L5-S1. Degenerative changes are seen at this level. Evaluation is limited by body habitus. There is no radiographic evidence of a complicating process. For further details, please see operative report. Final Dictated by: Jose Johnson MD Dictated DT/TM: 03/17/2022 9:29 pm Signed by: Jose Johnson MD Signed (Electronic Signature): 03/17/2022 9:30 pm (If Report Is Signed, Electronically Signed in Other Vendor System) [facility] Evaluation note Note Date & Type Note Facility Evaluation note Diagnosis Low back pain, unspecified back pain laterality, unspecified chronicity, unspecified whether sciatica present documented in this encounter [facility] Phone: Summary Purpose Family History No Family History Records FoundNo Family History Records FoundNo Family History Records FoundNo Family History Records Found Advance Directives No Advanced Directives Records FoundDocuments on File Type Date 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 ACP-Advance Directive ACP-Power of Mandrel Cleaner Additional Source Comments INFORMATION SOURCE (unrecogn ized section and content) DATE CREATED AUTHOR 07/04/2021 [facility] DATE CREATED AUTHOR AUTHOR'S ORGANIZ ATION 06/24/2022 [facility] DATE CREATED AUTHOR AUTHOR'S ORGANIZ ATION 11/12/2023 [facility] DATE CREATED AUTHOR AUTHOR'S ORGANIZ ATION 03/12/2024 [facility] Care Teams (unrecognized sec tion and content) Traffic Technician Relationship Specialty Start Date End Date ChrissielinoEstelle delgado [address] [place] [address] PCP - General Nurse Practitioner 01/02/22 Traffic Technician Relationship Specialty Start Date End Date ChrissielinoEstelle delgado [address] [place] [address] PCP - General Nurse Practitioner 01/02/22 Traffic Technician Relationship Specialty Start Date End Date DelilahEstelle delgado [address] [place] [address] PCP - General Nurse Practitioner 01/02/22 Traffic Technician Relationship Specialty Start Date End Date Delilahdanny Estelle Royal [address] [place] [address] PCP - General Nurse Practitioner 01/02/22 FOR RECORDS PERTAINING TO PATIENTS WHO ARE OR HAVE BEEN ENROLLED IN A CHEMICAL DEPENDENCY/SUBSTANCEABUSE PROGRAM, SOME INFORMATION MAY BE OMITTED. This clinical summary was aggregated from multiple sources. Caution should be exercised in using it in the provision of clinical care. This summary normalizes information from multiple sources, and as a consequence, information in this document may materially change the coding, format and clinical context of patient data. In addition, data may be omitted in some cases. CLINICAL DECISIONS SHOULD BE BASED ON THE PRIMARY CLINICAL RECORDS. [facility] [employer] [facility]. provides no warranty or guarantee of the accuracy or completeness of information in this document.
--- NOTE | 2024-03-21 10:18 | ECG_ITS ---
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
[2024-03-21 11:27] LABS: Anion Gap 10.4; Calcium 8.7 mg/dL (8.5-10.1); Carbon Dioxide 31.2 mmol/L (21.0-32.0); Chloride 99 mmol/L (98-107); Estimated GFR (African America >60 (>=60); Estimated GFR (Non-African Ame >60 (>=60); Glucose 98 mg/dL (74-106); Potassium 4.6 mmol/L (3.5-5.1); Sodium 136 mmol/L (136-145)
== END 2024-03-21 10:11 | disposition home or self-care (01) ==
LOC: PST 10:12
PROVIDERS: PCP Nurse Practitioner; Visit Provider Obstetrics & Gynecology
DX: Z01.810 Encounter for preprocedural cardiovascular examination (principal); Z01.812 Encounter for preprocedural laboratory examination; R93.89 Abnormal findings on diagnostic imaging of other specified body structures; N84.0 Polyp of corpus uteri
CPT/HCPCS: 80048; 93005

== ENCOUNTER 2024-04-07 07:02 | Day surgery (SDC) | payer BC, OTHER, SELFPAY ==
[2024-03-21 10:40] VITALS: BP 151/89; PULSE 65; TEMP 36.3; O2SAT 100; BMI 29.9
--- OUTSIDE RECORDS SUMMARY | 2024-04-07 07:08 | XMS_ITS | CCD ---
Author Organization [facility] ion Partnership [facility] Care Team Providers Care High [employer] Forming Equipment Operator Name Role Phone AICHHOLLida, PALS SPECIALIST ESTELLE Primary Care Unavailable ASHLEY PARK Attending Unavailable ASHLEY PARK Consulting Unavailable ASHLEY PARK Admitting Unavailable Estelle Hoang Primary Care Provider MD Ravi Phillips Attending Unava ilable MD Tianna Garcia Consulting Unavailable Aichholz PLODDING OPERATOR-PALS SPECIALIST, Estelle Hernandez Primary Care Unava ilable Aichholz PLODDING OPERATOR-PALS SPECIALIST, Estelle Hernandez Consulting Unava ilable MD Ravi Phillips Attending Unava ilable Aichholz PLODDING OPERATOR-PALS SPECIALIST, Estelle Hernandez Primary Care Unava ilable Aichholz PLODDING OPERATOR-PALS SPECIALIST, Estelle Hernandez Consulting Unava ilable Aichholz PLODDING OPERATOR-PALS SPECIALIST, Estelle Hernandez Primary Care Unava ilable MD Ravi Phillips Attending Unava ilable MD Ravi Phillips Attending Unava ilable Aichholz PLODDING OPERATOR-PALS SPECIALIST, Estelle Hernandez Primary Care Unava ilable Aichholz PLODDING OPERATOR-PALS SPECIALIST, Estelle Hernandez Primary Care Unava ilable MD Ravi Phillips Attending Unava ilable Aichholz PLODDING OPERATOR-PALS SPECIALIST, Estelle Hernandez Primary Care Unava ilable MD Yu Navarro Attending Unavailable Kwasi Rose PA-C Attending Unavail able Aichholz PLODDING OPERATOR-PALS SPECIALIST, Estelle Hernandez Referring Unava ilable Aichholz PLODDING OPERATOR-PALS SPECIALIST, Estelle Hernandez Primary Care Unava ilable MD Ravi Phillips Attending Unava ilable Aichholz PLODDING OPERATOR-PALS SPECIALIST, Estelle Hernandez Primary Care Unava ilable Estelle Hoang Primary Care Provider ESTELLE HOANG Referring Unavailable AICHHOLZ, ESTELLE J. Primary Care Unavailable ESTELLE HOANG Referring Unavailable ESTELLE HOANG Primary Care Unavailable ESTELLE HOANG Primary Care Unavailable ESTELLE HOANG Referring Unavailable ESTELLE HOANG Attending Unavailable ESTELLE HOANG Attending Unavailable ESTELLE HOANG Attending Unavailable CHERRI PAYTON Attending Unavailable CHERRI PAYTON Attending Unavailable Allergies Allergy Classification Reported Allergen(s) Allergy Type Date of Onset Reaction(s) Facility (1 source) Amoxicillin / Clavulanate; Translations: [Augmentin] Drug Allergy [facility] (1 source) Penicillin G Benzathine; Translations: [penicillin G benzathine] Propensity to adverse reactions to drug (disorder) [facility] Medications Current Medications Medication Drug Class(es) Dates Sig (Normalized) Sig (Original) [id number]-[id number]-APAP (TYLENOL COLD HEAD CONGESTION PO) (5 sources) Nvbihrzjx-NUO-LH -APAP (TYLENOL COLD HEAD CONGESTION PO) Indications: [...] Kendrick Dougherty MD 11/09/23 Final result Normal [facility] CAM DIGITAL SCREEN SELF REFERRAL W OR WO CAD BILATERALon 04-14-2023 [facility] CAM DIGITAL SCREEN SELF REFERRAL W [...] to the patient regarding the results. [employer] recommends annual mammograms for women 40 years and older. Interpreted by: Josh Anguiano DO Signed by: Josh Anguiano DO 04/14/23 Final result Normal [facility] Lipid Profileon 02-12-2023 Cholesterol [Mass/Vol] 266 mg/dL High <200 [facility] Comment on above: Result Comment: Cholesterol Guidelines: <200 Desirable 200-240 Borderline >240 Undesirable Performed By: #### C DP, CP, UAMIC #### [facility] [address] [place] [address] Truck Assembler: Wes Barker MD #### LIPR #### [address] [address] Truck Assembler: Anthony Machuca MD Cholesterol in HDL [Mass/Vol] 89 mg/dL Normal >40 [facility] Comment on above: Result Comment: HDL Guidelines: <40 Undesirable 40-59 Borderline >59 Desirable Performed By: #### C DP CP, UAMIC #### [address] [place], [place] [phone] Truck Assembler: Wes Barker MD #### LIPR #### [address] [address] Truck Assembler: Anthony Machuca MD Cholesterol in LDL [Mass/Vol] 160 mg/dL High 0-130 [facility] Comment on above: Result Comment: LDL Guidelines: <100 Desirable 100-129 Near to/above Desirable 130-159 Borderline >159 Undesirable Direct (measured) LDL and calculated LDL are not interchangeable tests. Performed By: #### C JOSE DAVILA, UAMIC #### [address] [place], [place] [phone] Truck Assembler: Wes Barker MD #### LIPR #### [address] [address] Truck Assembler: Anthony Machuca MD Cholesterol.total/C holesterol in HDL [Mass ratio] 3.0 {ratio} Normal <5 [facility] Comment on above: Performed By: #### C GIOVANNI CP, UAMIC #### [address] [place], [place] [phone] Truck Assembler: Wes Barker MD #### LIPR #### [address] [address] Truck Assembler: Anthony Machuca MD Triglyceride [Mass/Vol] 86 mg/dL Normal <150 [facility] Comment on above: Result Comment: Triglyceride Guidelines: <150 Desirable 150-199 Borderline 200-499 High >499 Very high Based on AHA Guidelines for fasting triglyceride, May 2012. Performed By: #### C DP, CP, UAMIC #### [facility] [address] [place] [address] Truck Assembler: Wes Barker MD #### LIPR #### [facility] [address] [place], [place] [phone] Truck Assembler: Anthony Machuca MD CBC with Auto Differentialon 02-11-2023 Basophils (Bld) [#/Vol] 0.08 10*3/uL [facility] Basophils/100 WBC (Bld) 1 % 0 - 2 % [facility] Eosinophils (Bld) [#/Vol] 0.37 10*3/uL [facility] Eosinophils/100 WBC (Bld) 4 % 1 - 4 % [facility] Erythrocyte distribution width (RBC) [Ratio] 12.8 % 11.8 - 14.4 % [facility] Hematocrit (Bld) [Volume fraction] 42.7 % 36.3 - 47.1 % [facility] Hemoglobin (Bld) [Mass/Vol] 14.0 g/dL 11.9 - 15.1 g/dL [facility] Immature granulocytes (Bld) [#/Vol] [facility] Immature granulocytes/100 WBC (Bld) 0 % 0 [facility] Lymphocytes/100 WBC (Bld) 38 % 24 - 43 % [facility] Lymphocytes/100 WBC (Bld) 3.40 % [facility] MCH (RBC) [Entitic mass] 31.3 pg 25.2 - 33.5 pg [facility] MCHC (RBC) [Mass/Vol] 32.8 g/dL 28.4 - 34.8 g/dL [facility] MCV (RBC) [Entitic vol] 95.5 fL 82.6 - 102.9 fL [facility] Monocytes/100 WBC (Bld) 9 % 3 - 12 % [facility] Monocytes/100 WBC (Bld) 0.81 % [facility] Neutrophils/100 WBC (Bld) 48 % 36 - 65 % [facility] Nucleated RBC/100 WBC (Bld) [Ratio] 0.0 % 0.0 per 100 WBC [facility] Platelet mean volume (Bld) [Entitic vol] 8.7 fL 8.1 - 13.5 fL [facility] Platelets (Bld) [#/Vol] 396 10*3/uL [facility] RBC (Bld) [#/Vol] 4.47 10*6/uL 3.95 - 5.1 1 m/uL [facility] Segmented neutrophils/100 WBC (Bld) 4.19 % [facility] WBC other (Bld) [#/Vol] 8.9 [facility] CBC with Diffon 02-11-2023 Abs. Basophil 0.08 k/uL Normal 0.00-0.20 [facility] Comment on above: Performed By: #### C DP, CP, UAMIC #### [facility] [address] [place] [address] [place] [address] Truck Assembler: Wes Barker MD #### LIPR #### [place] [phone] Truck Assembler: Anthony Machuca MD Abs.Imm.Granulocyte <0.03 Normal 0.00-0.30 [facility] Comment on above: Performed By: #### C DP, CP, UAMIC #### [facility] [address] [place] [phone] Truck Assembler: Wes Barker MD #### LIPR #### [place] [address] Truck Assembler: Anthony Machuca MD Abs.Neutrophil (Seg) 4.19 k/uL Normal 1.50-8.10 [facility] Comment on above: Performed By: #### C DP, CP, UAMIC #### [facility] [address] [place], [place] [phone] Truck Assembler: Wes Barker MD #### LIPR #### [address] [phone] Truck Assembler: Anthony Machuca MD Basophils/100 WBC (Bld) 1 % Normal 0-2 [facility] Comment on above: Performed By: #### C DP, CP, UAMIC #### [facility] [address] [place], [place] [phone] Truck Assembler: Wes Barker MD #### LIPR #### [address] [phone] Truck Assembler: Anthony Machuca MD Eosinophils (Bld) [#/Vol] 0.37 10*3/uL Normal 0.00-0.44 [facility] Comment on above: Performed By: #### C DP, CP, UAMIC #### [facility] [address] [place], [place] [phone] Truck Assembler: Wes Barker MD #### LIPR #### [address] [phone] Truck Assembler: Anthony Machuca MD Eosinophils/100 WBC (Bld) 4 % Normal 1-4 [facility] Comment on above: Performed By: #### C DP, CP, UAMIC #### [facility] [address] [place], [place] [phone] Truck Assembler: Wes Barker MD #### LIPR #### [address] [address] Truck Assembler: Anthony Machuca MD Erythrocyte distribution width (RBC) [Ratio] 12.8 % Normal 11.8-14.4 [facility] Comment on above: Performed By: #### C DP, CP, UAMIC #### [facility] [address] [place], [place] [phone] Truck Assembler: Wes Barker MD #### LIPR #### [address] [phone] Truck Assembler: Anthony Machuca MD Hematocrit (Bld) [Volume fraction] 42.7 % Normal 36.3-47.1 [facility] Comment on above: Performed By: #### C DP, CP, UAMIC #### [facility] [address] [place] [address] [place] [phone] Truck Assembler: Wes Barker MD #### LIPR #### [address] [address] Truck Assembler: Anthony Mahcuca MD Hemoglobin (Bld) [Mass/Vol] 14.0 g/dL Normal 11.9-15.1 [facility] Comment on above: Performed By: #### C DP, CP, UAMIC #### [facility] [address] [place] [address] [place] [phone] Truck Assembler: Wes Barker MD #### LIPR #### [place] [address] Truck Assembler: Anthony Machuca MD Immature granulocytes/100 WBC (Bld) 0 % Normal 0 [facility] Comment on above: Performed By: #### C DP, CP, UAMIC #### [address] [place], [place] [phone] Truck Assembler: Wes Barker MD #### LIPR #### [place] [address] Truck Assembler: Anthony Machuca MD Lymphocytes (Bld) [#/Vol] 3.40 10*3/uL Normal 1.10-3.70 [facility] Comment on above: Performed By: #### C DP, CP, UAMIC #### [facility] [address] [place] [address] Truck Assembler: Wes Barker MD #### LIPR #### [place] [address] [place], [place] [phone] Truck Assembler: Anthony Machuca MD Lymphocytes/100 WBC (Bld) 38 % Normal 24-43 [facility] Comment on above: Performed By: #### C DP, CP, UAMIC #### [facility] [address] [place] [address] Truck Assembler: Wes Barker MD #### LIPR #### [place] [address] [place], [place] [phone] Truck Assembler: Anthony Machuca MD MCH (RBC) [Entitic mass] 31.3 pg Normal 25.2-33.5 [facility] Comment on above: Performed By: #### C DP, CP, UAMIC #### [facility] [address] [place] [address] Truck Assembler: Wes Barker MD #### LIPR #### [address] [phone] Truck Assembler: Anthony Machuca MD MCHC (RBC) [Mass/Vol] 32.8 g/dL Normal 28.4-34.8 [facility] Comment on above: Performed By: #### C DP, CP, UAMIC #### [facility] [address] [place] [address] Truck Assembler: Wes Barker MD #### LIPR #### [address] [phone] Truck Assembler: Anthony Machuca MD MCV (RBC) [Entitic vol] 95.5 fL Normal 82.6-102.9 [facility] Comment on above: Performed By: #### C DP, CP, UAMIC #### [facility] [address] [place], [place] [phone] Truck Assembler: Wes Barker MD #### LIPR #### [address] [address] Truck Assembler: Anthoyn Machuca MD Monocytes (Bld) [#/Vol] 0.81 10*3/uL Normal 0.10-1.20 [facility] Comment on above: Performed By: #### C DP, CP, UAMIC #### [facility] [address] [place], [place] 3600283 Truck Assembler: Wes Barker MD #### LIPR #### [address] [address] Truck Assembler: Anthony Machuca MD Monocytes/100 WBC (Bld) 9 % Normal 3-12 [facility] Comment on above: Performed By: #### C DP, CP, UAMIC #### [address] [place], [place] [phone] Truck Assembler: Wes Barker MD #### LIPR #### [address] [address] Truck Assembler: Anthony Machuca MD Neutrophil (Seg) 48 % Normal 36-65 [facility] Comment on above: Performed By: #### C DP, CP, UAMIC #### [address] [place], [place] [phone] Truck Assembler: Wes Barker MD #### LIPR #### [address] [address] Truck Assembler: Anthony Machuca MD NRBC Automated 0.0 per 100 WBC Normal 0.0 [facility] Comment on above: Performed By: #### C DP, CP, UAMIC #### [address] [place] [address] Truck Assembler: Wes Barker MD #### LIPR #### [place] [address] [place], [place] [phone] Truck Assembler: Anthony Machuca MD Platelet mean volume (Bld) [Entitic vol] 8.7 fL Normal 8.1-13.5 [facility] Comment on above: Performed By: #### C DP, CP, UAMIC #### [address] [place] [phone] Truck Assembler: Wes Barker MD #### LIPR #### [place] [phone] Truck Assembler: Anthony Machuca MD Platelets (Bld) [#/Vol] 396 10*3/uL Normal 138-453 [facility] Comment on above: Performed By: #### C DP, CP, UAMIC #### [address] [place] [phone] Truck Assembler: Wes Barker MD #### LIPR #### [place] [address] Truck Assembler: Anthony Machuca MD RBC (Bld) [#/Vol] 4.47 10*6/uL Normal 3.95-5.11 [facility] Comment on above: Performed By: #### C DP, CP, UAMIC #### [address] [place] [address] Truck Assembler: Wes Barker MD #### LIPR #### [place] [phone] Truck Assembler: Anthony Machuca MD WBC (Bld) [#/Vol] 8.9 10*3/uL Normal 3.5-11.3 [facility] Comment on above: Performed By: #### C DP, CP, UAMIC #### [facility] [address] [place] [address] Dr. [place], [place] [phone] Truck Assembler: Wes Barker MD #### LIPR #### [address] [phone] Truck Assembler: Anthony Machuca MD Comp Metabolic Profon 2022 Albumin [Mass/Vol] 4.8 g/dL Normal 3.5-5.2 [facility] Comment on above: Performed By: #### C DP, CP, UAMIC #### [address] [place], [place] [phone] Truck Assembler: Wes Barker MD #### LIPR #### [address] [phone] Truck Assembler: Anthony Machuca MD Albumin/Glob Ratio 1.6 Normal 1.0-2.5 [facility] Comment on above: Performed By: #### C DP, CP, UAMIC #### [address] [place], [place] 0100083 Truck Assembler: Wes Barker MD #### LIPR #### [address] [address] Truck Assembler: Anthony Machuca MD Alkaline Phos 100 U/L Normal 35-104 [facility] Comment on above: Performed By: #### C DP, CP, UAMIC #### [address] [place], [place] [phone] Truck Assembler: Wes Barker MD #### LIPR #### [address] [address] Truck Assembler: Anthony Machuca MD ALT [Catalytic activity/Vol] 25 U/L Normal 5-33 [facility] Comment on above: Performed By: #### C DP, CP, UAMIC #### [address] [place] [address] Truck Assembler: Wes Barker MD #### LIPR #### [place] [address] [place], [place] [phone] Truck Assembler: Anthony Machuca MD Anion gap [Moles/Vol] 10 mmol/L Normal 9-17 [facility] Comment on above: Performed By: #### C DP, CP, UAMIC #### [facility] [address] [place] [address] Truck Assembler: Wes Barker MD #### LIPR #### [address] [phone] Truck Assembler: Anthony Machuca MD AST [Catalytic activity/Vol] 27 U/L Normal <32 [facility] Comment on above: Performed By: #### C DP, CP, UAMIC #### [facility] [address] [place] [address] [address]. [place] [phone] Truck Assembler: Wes Barker MD #### LIPR #### [address] [phone] Truck Assembler: Anthony Machuca MD Bilirubin [Mass/Vol] 0.4 mg/dL Normal 0.3-1.2 [facility] Comment on above: Performed By: #### C DP, CP, UAMIC #### [facility] [address] [place] [address] Dr. [place] [phone] Truck Assembler: Wes Barker MD #### LIPR #### [address] [address] Truck Assembler: Anthony Machuca MD BUN/CRE Ratio 19 Normal -20 [facility] Comment on above: Performed By: #### C DP, CP, UAMIC #### [facility] [address] [place], [place] [phone] Truck Assembler: Wes Barker MD #### LIPR #### [address] [place] [address] Truck Assembler: Anthony Machuca MD Calcium [Mass/Vol] 9.8 mg/dL Normal 8.6-10.4 [facility] Comment on above: Performed By: #### C DP, CP, UAMIC #### [facility] [address] [place], [place] [phone] Truck Assembler: Wes Barker MD #### LIPR #### [address] [address] Truck Assembler: Anthony Machuca MD Chloride [Moles/Vol] 100 mmol/L Normal 98-107 [facility] Comment on above: Performed By: #### C DP, CP, UAMIC #### [facility] [address] [place] [address] Dr. [place], [place] [phone] Truck Assembler: Wes Barker MD #### LIPR #### [address] [address] Truck Assembler: Anthony Machuca MD CO2 [Moles/Vol] 29 mmol/L Normal 20-31 [facility] Comment on above: Performed By: #### C DP, CP, UAMIC #### [facility] [address] [place] [address] Dr. [place], [place] [phone] Truck Assembler: Wes Barker MD #### LIPR #### [address] [address] Truck Assembler: Anthony Machuca MD Creatinine [Mass/Vol] 0.8 mg/dL Normal 0.5-0.9 [facility] Comment on above: Performed By: #### C DP, CP, UAMIC #### [facility] [address] [place] [address] Dr. [place], [place] [phone] Truck Assembler: Wes Barker MD #### LIPR #### [address] [phone] Truck Assembler: Anthony Machuca MD GFR/1.73 sq M.predicted among non-blacks MDRD (S/P/Bld) [Vol rate/Area] mL/min/{1.73_m2} Normal >60 [facility] Comment on above: Result Comment: These results [...] By: #### C JOSE DAVILA, UAMIC #### [address] [place] [address] Truck Assembler: Wes Barker MD #### LIPR #### [address] [phone] Truck Assembler: Anthony Machuca MD Glucose [Mass/Vol] 95 mg/dL Normal 70-99 [facility] Comment on above: Performed By: #### C JOSE DAVILA, UAMIC #### [address] [place] [phone] Truck Assembler: Wes Barker MD #### LIPR #### [address] [address] Truck Assembler: Anthony Machuca MD Potassium [Moles/Vol] 4.4 mmol/L Normal 3.7-5.3 [facility] Comment on above: Performed By: #### C DP CP, UAMIC #### [address] [place] [address] Truck Assembler: Wes Barker MD #### LIPR #### [address] [phone] Truck Assembler: Anthony Machuca MD Protein [Mass/Vol] 7.8 g/dL Normal 6.4-8.3 [facility] Comment on above: Performed By: #### C DP, CP, UAMIC #### [facility] [address] [place] [address] Truck Assembler: Wes Barker MD #### LIPR #### [place] [address] [place], [place] [phone] Truck Assembler: Anthony Machuca MD Sodium [Moles/Vol] 139 mmol/L Normal 135-144 [facility] Comment on above: Performed By: #### C DP, CP, UAMIC #### [facility] [address] [place] [address] Truck Assembler: Wes Barker MD #### LIPR #### [place] [address] [place], [place] [phone] Truck Assembler: Anthony Machuca MD Urea nitrogen [Mass/Vol] 15 mg/dL Normal 6-20 [facility] Comment on above: Performed By: #### C DP, CP, UAMIC #### [facility] [address] [place] [address] [place] [address] Truck Assembler: Wes Barker MD #### LIPR #### [place] [address] [place], [place] [phone] Truck Assembler: Anthony Machuca MD Comprehensive Metabolic Pane [facility] 02-11-2023 Albumin [Mass/Vol] 4.8 g/dL 3.5 - 5.2 g/dL [facility] Albumin/Globulin [Mass ratio] 1.6 {ratio} 1.0 - 2.5 [facility] ALP [Catalytic activity/Vol] 100 U/L 35 - 104 U/L [facility] ALT [Catalytic activity/Vol] 25 U/L 5 - 33 U/L [facility] Anion gap [Moles/Vol] 10 mmol/L 9 - 17 mmol/L [facility] AST [Catalytic activity/Vol] 27 U/L [facility] - 32 U/L [facility] Bilirubin [Mass/Vol] 0.4 mg/dL 0.3 - 1.2 mg/dL [facility] Calcium [Mass/Vol] 9.8 mg/dL 8.6 - 10. 4 mg/dL [facility] Chloride [Moles/Vol] 100 mmol/L 98 - 107 mmol/L [facility] CO2 [Moles/Vol] 29 mmol/L 20 - 31 mmol/L [facility] Creatinine [Mass/Vol] 0.8 mg/dL 0.5 - 0.9 mg/dL [facility] GFR/1.73 sq M.predicted MDRD (S/P/Bld) [Vol rate/Area] - PINF [facility] Comment on above: These results are not [...] [Mass/Vol] 95 mg/dL 70 - 99 mg/dL [facility] Potassium [Moles/Vol] 4.4 mmol/L 3.7 - 5.3 mmol/L [facility] Protein [Mass/Vol] 7.8 g/dL 6.4 - 8.3 g/dL [facility] Sodium [Moles/Vol] 139 mmol/L 135 - 144 mmol/L [facility] Urea nitrogen [Mass/Vol] 15 mg/dL 6 - 20 mg/dL [facility] Urea nitrogen/Creatinine [Mass ratio] 19 mg/mg 9 - 20 [facility] Lipid Panelon 02-11-2023 Cholesterol [Mass/Vol] 266 mg/dL High NINF - 200 mg/dL [facility] Comment on above: Cholesterol Guidelines: <200 Desirable 200-240 Borderline >240 Undesirable Cholesterol in HDL [Mass/Vol] 89 mg/dL 40 - PINF mg/dL [facility] Comment on above: HDL Guidelines: <40 Undesirable 40-59 Borderline >59 Desirable Cholesterol in LDL [Mass/Vol] 160 mg/dL High 0 - 130 mg/dL [facility] Comment on above: LDL Guidelines: <100 Desirable 100-129 Near to/above Desirable 130-159 Borderline >159 Undesirable Direct (measured) LDL and calculated LDL are not interchangeable tests. Cholesterol.total/C holesterol in HDL [Mass ratio] 3.0 {ratio} NINF - 5 [facility] Interpretation and review of laboratory results Abnormal [facility] Triglyceride [Mass/Vol] 86 mg/dL NINF - 150 mg/dL [facility] Comment on above: Triglyceride Guidelines: <150 Desirable 150-199 Borderline 200-499 High >499 Very high Based on AHA Guidelines for fasting triglyceride, May 2012. [facility] Urinalysis w/ Microon 2022 Bacteria 2+ Abnormal NONE [facility] Comment on above: Performed By: #### C DP, CP, UAMIC #### [facility] [address] [place] [address] Dr. [place] [phone] Truck Assembler: Wes Barker MD #### LIPR #### [place] [phone] Truck Assembler: Anthony Machuca MD Bilirubin, SemiQt,Ur Negative Normal NEG [facility] [facility] Comment on above: Performed By: #### C DP, CP, UAMIC #### [address] [place] [id number] Truck Assembler: Wes Barker MD #### LIPR #### [address] [address] Truck Assembler: Anthony Machuca MD Blood, Urine Negative Normal NEG [facility] Comment on above: Performed By: #### C DP, CP, UAMIC #### [address] [place] [phone] Truck Assembler: Wes Barker MD #### LIPR #### [address] [place] [address] Truck Assembler: Anthony Machuca MD Clarity (U) SLIGHTLY CLOUDY Abnormal CLEAR [facility] Comment on above: Performed By: #### C DP, CP, UAMIC #### [facility] [address] [place] [address] Dr. [place], [place] [phone] Truck Assembler: Wes Barker MD #### LIPR #### [address] [address] Truck Assembler: Anthony Machuca MD Color (U) Yellow Normal YEL [facility] Comment on above: Performed By: #### C DP, CP, UAMIC #### [address] [place], [place] [phone] Truck Assembler: Wes Barker MD #### LIPR #### [address] [address] Truck Assembler: Anthony Machuca MD Epithelial cells LM Ql (Urine sed) 5 TO 10 Normal 0-25 [facility] Comment on above: Performed By: #### C DP, CP, UAMIC #### [address] [place], [place] [phone] Truck Assembler: Wes Barker MD #### LIPR #### [address] [address] Truck Assembler: Anthony Machuca MD Glucose Ql (U) Negative Normal NEG [facility] Comment on above: Performed By: #### C DP, CP, UAMIC #### [facility] [address] [place] [address] Dr. [place], [place] [phone] Truck Assembler: Wes Barker MD #### LIPR #### [address] [address] Truck Assembler: Anthony Machuca MD Ketones Ql (U) Negative Normal NEG [facility] Comment on above: Performed By: #### C DP, CP, UAMIC #### [facility] [address] [place] [address] Truck Assembler: Wes Barker MD #### LIPR #### [address] [address] Truck Assembler: Anthony Machuca MD Leukocyte esterase Test strip Ql (U) Negative Normal NEG [facility] Comment on above: Performed By: #### C DP, CP, UAMIC #### [facility] [address] [place] [address] Dr. [place], [place] [phone] Truck Assembler: Wes Barker MD #### LIPR #### [address] [address] Truck Assembler: Anthony Machuca MD Mucus Strands 2+ Abnormal NONE [facility] Comment on above: Performed By: #### C DP, CP, UAMIC #### [address] [place], [place] [phone] Truck Assembler: Wes Barker MD #### LIPR #### [address] [address] Truck Assembler: Anthony Machuca MD Nitrite,Ur Negative Normal NEG [facility] Comment on above: Performed By: #### C DP, CP, UAMIC #### [facility] [address] [place] [address] Dr. [place], [place] [phone] Truck Assembler: Wes Barker MD #### LIPR #### [address] [address] Truck Assembler: Anthony Machuca MD PH,Ur 6.0 Normal 5.0-9.0 [facility] Comment on above: Performed By: #### C DP, CP, UAMIC #### [facility] [address] [place] [address] Dr. [place], [place] [phone] Truck Assembler: Wes Barker MD #### LIPR #### [address] [address] Truck Assembler: Anthony Machuca MD Protein Ql (U) Negative Normal NEG [facility] Comment on above: Performed By: #### C DP, CP, UAMIC #### [facility] [address] [place], [place] [phone] Truck Assembler: Wes Barker MD #### LIPR #### [address] [address] Truck Assembler: Anthony Machuca MD Spec. [address],Ur 1.025 High 1.010-1.020 [facility] Comment on above: Performed By: #### C DP, CP, UAMIC #### [facility] [address] [place] [address] Dr. [place], [place] [phone] Truck Assembler: Wes Barker MD #### LIPR #### [address] [address] Truck Assembler: Anthony Machuca MD Urine RBC's 0 TO 2 Normal 0-2 [facility] Comment on above: Performed By: #### C DP, CP, UAMIC #### [facility] [address] [place] [address] Dr. [place], [place] [phone] Truck Assembler: Wes Barker MD #### LIPR #### [address] [address] Truck Assembler: Anthony Machuca MD Urine WBC's 5 TO 10 Normal 0-5 [facility] Comment on above: Performed By: #### C DP, CP, UAMIC #### [address] [place] [address] Truck Assembler: Wes Barker MD #### LIPR #### [address] [address] Truck Assembler: Anthony Machuca MD Urobilinogen,Ur Normal Normal 0.0-1.0 [facility] Comment on above: Performed By: #### C DP, CP, UAMIC #### [facility] [address] [place] [place] [address] Truck Assembler: Wes Barker MD #### LIPR #### [facility] [address] [place] [address] Truck Assembler: Anthony Machuca MD Urinalysis with Microscopico n 02-11-2023 Bacteria LM Ql (Urine sed) 2+ Abnormal None [facility] Bilirubin Ql (U) Negative NEGATIVE [facility] Clarity (U) SLIGHTLY CLOUDY Abnormal Clear [facility] Color (U) Yellow Yellow [facility] Epithelial cells LM.HPF (Urine sed) [#/Area] 5 TO 10 [facility] Glucose Test strip (U) [Mass/Vol] Negative NEGATIVE mg/dL [facility] Hemoglobin Auto test strip Ql (U) Negative NEGATIVE [facility] Interpretation and review of laboratory results Abnormal [facility] Ketones (U) [Mass/Vol] Negative NEGATIVE mg/dL [facility] Leukocyte esterase Test strip Ql (U) Negative NEGATIVE [facility] Mucus Ql (Urine sed) 2+ Abnormal None [facility] Nitrite Ql (U) Negative NEGATIVE [facility] pH (U) 6.0 [pH] 5.0 - 9.0 [facility] Protein (U) [Mass/Vol] Negative NEGATIVE mg/dL [facility] RBC LM.HPF (Urine sed) [#/Area] 0 TO 2 [facility] Specific gravity (U) [Rel density] 1.025 High 1.010 - 1.020 [facility] Urobilinogen Qn (U) Normal 0.0 - 1. 0 EU/dL [facility] WBC LM.HPF (Urine sed) [#/Area] 5 TO 10 [facility] Neurosurgery Office/Clinic N oteon 06-23-2022 Neurosurgery Office/Clinic [...] disease Lumbar (more content not included)... Normal [facility] Provider Letteron 06-23-2022 Provider Letter RUSTY Whitney [address] [place] [address] Re: Carleen Burns Date of Visit: 06/23/2022 Dear Estelle OJEDA, Let me know if you have any questions or concerns. Sincerely, MIGUEL Yung MD Providers: The following document(s) were included in the letter: June 23, 2022 15:42:08 EST - (06/23/2022) Neurosurgery Office Visit Note Normal [facility] Neurosurgery Office/Clinic N oteon 05-07-2022 Neurosurgery Office/Clinic [...] have personal (more content not included)... Normal [facility] Provider Letteron 05-07-2022 Provider Letter RUSTY Whitney [address] [place] [address] Re: Carleen Anese Date of Visit: 05/07/2022 Dear Estelle OJEDA, Let me know if you have any questions or concerns. Sincerely, MIGUEL Yung MD C Providers: The following document(s) were included in the letter: May 07, 2022 14:54:11 EDT - (05/07/2022) Neurosurgery Office Visit Note Normal [facility] Neurosurgery Office/Clinic N oteon 04-02-2022 Neurosurgery Office/Clinic [...] making: [] (more content not included)... Normal [facility] Provider Letteron 04-02-2022 Provider Letter RUSTY Whitney [address] [place] [address] Re: Carleen Burns Date of Visit: 04/02/2022 Dear Estelle OJEDA, Let me know if you have any questions or concerns. 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 Preoperative Diagnosis HERNIATED NUCLEUS PULPOSUS LEFT L5-S1, INTRACTABLE RADICULOPATHY Postoperative Diagnosis Same Operation Left L5-S1 lumbar microdiscectomy; minimally invasive surgical technique using [employer] tubular retractor 6 cm x 22 mm; microscope for microdissection Surgeon(s) Alan RIVERA MD, Ravi Tafoya (Surgeon - Primary) Sql Architect Althea Rawls PA-C (Weigh Boss) Anesthesia General Radha ALBA, Tianna Mo (Nuclear Equipment Sales Engineer) Lisette Hackett (Provider) Estimated Blood Loss 5.0 [...] secured and patient was turned onto awaiting [place] operative table with a Kevin frame and [...] Muscular pl (more content not included)... Normal [facility] Provider Letteron 03-12-2022 Provider Letter RUSTY Whitney [address] [place] [address] Re: Carleen Burns Date of Visit: 03/12/2022 Dear Estelle OJEDA, Let me know if you have any questions or concerns. Sincerely, MIGUEL Yung MD Providers: The following document(s) were included in the letter: March 12, 2022 11:19:37 EDT - (03/12/2022) Neurosurgery operative note Normal [facility] .UA Microscp Aon 03-10-2022 UA Bacteria Present Abnormal Absent [facility] Comment on above: Performed By: #### . Urinalysis Microscopic Auto ####[address] [address] UA Mucus Present Abnormal Absent [facility] Comment on above: Performed By: #### . Urinalysis Microscopic Auto ####[address] [address] UA RBC Quant 3 /HPF Normal 0-[address] [facility] Comment on above: Performed By: #### . Urinalysis Microscopic Auto ####[address] [address] UA Squepi Cells Quant 1 /HPF Normal 0-29 [facility] Comment on above: Performed By: #### . Urinalysis Microscopic Auto ####[address] [address] UA WBC Quant 1 /HPF Normal 0-[address] [facility] Comment on above: Performed By: #### . Urinalysis Microscopic Auto ####[address] [address] .eGFRon 03-10-2022 GFR/1.73 sq M.predicted MDRD (S/P/Bld) [Vol rate/Area] mL/min/{1.73_m2} Normal >=60 [facility] Comment on above: Result Comment: [facility] have implemented the eGFR calculation approach [...] = years Performed By: #### E GFR ####[place] [address] ABO/Rhon 03-10-2022 ABO/Rh SD 03/12 ABO/Rh: B POS Normal [facility] Comment on above: Performed By: #### A BORH ####[facility] (DEFAULT)[address] [place], [place] [id number] [address] ABSC Autoon 03-10-2022 ABSC Auto Negative Normal [facility] Comment on above: Performed By: #### A SA ####[place] [address] CBC w/ Diffon 03-10-2022 Erythrocyte distribution width (RBC) [Ratio] 13.0 % Normal 11.6-14.8 [facility] Comment on above: Performed By: #### C BC ####[place] [id number] Hematocrit (Bld) [Volume fraction] 43.0 % Normal 36.0-46.0 [facility] Comment on above: Performed By: #### C BC ####[place] [id number] Hemoglobin (Bld) [Mass/Vol] 14.4 g/dL Normal 12.0-16.0 [facility] Comment on above: Performed By: #### C BC ####[address] [address] MCH (RBC) [Entitic mass] 30.8 pg Normal 27.0-35.0 [facility] Comment on above: Performed By: #### C BC ####[address] [address] MCHC 33.6 % Normal 31.0-37.0 [facility] Comment on above: Performed By: #### C BC ####[address] [address] MCV (RBC) [Entitic vol] 91.9 fL Normal 80.0-100.0 [facility] Comment on above: Performed By: #### C BC ####[address] [address] Platelet 423 x10*3/mcL High 150-350 [facility] Comment on above: Performed By: #### C BC ####[address] [address] Platelet mean volume (Bld) [Entitic vol] 7.3 fL Normal 6.7-10.6 [facility] Comment on above: Performed By: #### C BC ####[address] [address] RBC 4.67 x10*6/mcL Normal 3.80-5.20 [facility] Comment on above: Performed By: #### C BC ####[address] [address] WBC 11.2 x10*3/mcL High 4.5-11.0 [facility] Comment on above: Performed By: #### C BC ####[address] [address] CMPon 03-10-2022 Albumin [Mass/Vol] 4.5 g/dL Normal 3.2-4.[address] [facility] Comment on above: Performed By: #### C OMP ####[address] [address] Albumin/Globulin [Mass ratio] 1.3 {ratio} Normal 1.1-2.2 [facility] Comment on above: Performed By: #### C OMP ####[address] [address] Alk Phos 76 IU/L Normal 32-91 [facility] Comment on above: Performed By: #### C OMP ####[address] [address] ALT [Catalytic activity/Vol] 38 U/L Normal 14-54 [facility] Comment on above: Performed By: #### C OMP ####[address] [address] Anion gap [Moles/Vol] 10 mmol/L Normal 7-17 [facility] Comment on above: Performed By: #### C OMP ####[address] [address] AST [Catalytic activity/Vol] 30 U/L Normal 15-41 [facility] Comment on above: Performed By: #### C OMP ####[address] [address] Bili Total 0.6 mg/dL Normal 0.3-1.2 [facility] Comment on above: Performed By: #### C OMP ####[address] [address] Calcium [Mass/Vol] 9.4 mg/dL Normal 8.5-10.[address] [facility] Comment on above: Performed By: #### C OMP ####[address] [address] Chloride [Moles/Vol] 95 mmol/L Low 98-110 [facility] Comment on above: Performed By: #### C OMP ####[address] [address] CO2 [Moles/Vol] 32 mmol/L Normal 22-32 [facility] Comment on above: Performed By: #### C OMP ####[address] [address] Creatinine [Mass/Vol] 0.98 mg/dL Normal 0.44-1.03 [facility] Comment on above: Performed By: #### C OMP ####[address] [address] Glucose [Mass/Vol] 167 mg/dL High 70-[address] [facility] Comment on above: Performed By: #### C OMP ####[address] [address] Potassium [Moles/Vol] 3.5 mmol/L Normal 3.4-4.8 [facility] Comment on above: Performed By: #### C OMP ####[address] [address] Protein [Mass/Vol] 7.9 g/dL Normal 6.5-8.[address] [facility] Comment on above: Performed By: #### C OMP ####[address] [address] Sodium [Moles/Vol] 134 mmol/L Normal 133-[address] [facility] Comment on above: Performed By: #### C OMP ####[address] [address] Urea nitrogen [Mass/Vol] 22 mg/dL Normal 8-26 [facility] Comment on above: Performed By: #### C OMP ####[address] [address] Urea nitrogen/Creatinine [Mass ratio] 22.4 mg/mg High 10.0-20.0 [facility] Comment on above: Performed By: #### C OMP ####[address] [address] Diff Autoon 03-10-2022 Baso Absolute 0.1 x10*3/mcL Normal 0.0-0.2 [facility] Comment on above: Performed By: #### . Automated Diff ####[address] [address] Basophils/100 WBC (Bld) 0.6 % Normal 0.0-1.5 [facility] Comment on above: Performed By: #### . Automated Diff ####[address] [address] Eos Absolute 0.1 x10*3/mcL Normal 0.0-0.4 [facility] Comment on above: Performed By: #### . Automated Diff ####[address] [address] Eosinophils/100 WBC (Bld) 0.7 % Normal 0.0-5.4 [facility] Comment on above: Performed By: #### . Automated Diff ####[address] [address] Lymph Absolute 4.5 x10*3/mcL Normal 1.0-4.8 [facility] Comment on above: Performed By: #### . Automated Diff ####[address] [address] Lymphocytes/100 WBC (Bld) 40.3 % Normal 27.2-40.8 [facility] Comment on above: Performed By: #### . Automated Diff ####[address] [address] [place] Absolute 0.8 x10*3/mcL Normal 0.1-1.1 [facility] Comment on above: Performed By: #### . Automated Diff ####[address] [address] Monocytes/100 WBC (Bld) 7.1 % Normal 3.7-11.9 [facility] Comment on above: Performed By: #### . Automated Diff ####[address] [address] Neutro Absolute 5.8 x10*3/mcL Normal 1.8-7.[address] [facility] Comment on above: Performed By: #### . Automated Diff ####[place] [address] [place] [address] Neutro Auto 51.3 % Normal 47.2-70.8 [facility] Comment on above: Performed By: #### . Automated Diff ####[facility] [place] [address] Neurosurgery Office/Clinic N oteon 03-10-2022 Neurosurgery Office/Clinic [...] signed by (more content not included)... Normal [facility] Neurosurgery Office/Clinic Note Chief Complaint Patient is [...] Procedure/Surgical Hi (more content not included)... Normal [facility] PTon 03-10-2022 INR Coag (PPP) [Relative time] 1.0 {INR} Normal <=3.5 [facility] Comment on above: Result Comment: INR has no normal range. INR Therapeutic range is: 2.0-3.0 (AF, CVA, TIAs, DVT prophylaxis, acute DVT) 2.5-3.5 ([facility] heart valves, recurrent thrombosis/emboli) Performed By: #### P TINR ####[address] [address] PT Coag (PPP) [Time] 10.1 s Normal 8.9-11.8 [facility] Comment on above: Performed By: #### P TINR ####[address] [address] PTTon 03-10-2022 aPTT Coag (Bld) [Time] 22.9 s Normal 20.7-28.3 [facility] Comment on above: Performed By: #### P TT ####[address] [address] Provider Letteron 03-10-2022 Provider Letter RUSTY Whitney [address] [place] [address] Re: Carleen Burns Date of Visit: 03/10/2022 Dear Estelle JOEDA, Thank you for your referral and allowing me to contribute to the care of your patient: BebetoLichaCarleenvictor m Vazquez. Attached is my office note where you will find my assessment and recommendations from our encounter. My office?s contact information: [facility] [address] [place], [phone] Let me know if you have any questions or concerns. Sincerely, DOMINICK Montoya Providers: The following document(s) were included in the letter: March 10, 2022 09:01:44 EDT - (03/10/2022) Neurosurgery Office Visit Note Normal [facility] Provider Letter Estelle Hoang APRN-LUIS EDUARDO [address] [place] [address] Re: Carleen Bebeto Date of Visit: 03/10/2022 Dear Estelle Hoang APRN-LUI SEDUARDO, Let me know if you have any questions or concerns. Sincerely, MIGUEL Yung MD Providers: The following document(s) were included in the letter: March 10, 2022 10:14:24 EDT - (03/10/2022) Neurosurgery Office Visit Note Normal [facility] UA w Culture if Indon 2021 Color (U) Light-Yellow Normal [facility] Comment on above: Performed By: #### U CI ####[address] [address] Ketones Ql (U) Negative Normal Negative [facility] Comment on above: Performed By: #### U CI ####[address] [address] UA Blood Negative Normal Negative [facility] Comment on above: Performed By: #### U CI ####[address] [address] UA Clarity Clear Normal [facility] Comment on above: Performed By: #### U CI ####[address] [address] UA Glucose Normal Normal Negative [facility] Comment on above: Performed By: #### U CI ####[address] [address] UA Leukocyte Esterase Negative Normal Negative [facility] Comment on above: Performed By: #### U CI ####[address] [address] UA Nitrite Negative Normal Negative [facility] Comment on above: Performed By: #### U CI ####[address] [address] UA pH 6.5 Normal 4.5 - 7.8 [facility] Comment on above: Performed By: #### U CI ####[address] [address] UA Protein Negative Normal Negative [facility] Comment on above: Performed By: #### U CI ####[address] [address] UA Source Clean Catch Normal [facility] Comment on above: Performed By: #### U CI ####[address] [address] UA Spec Grav 1.019 Normal 1.003-1.035 [facility] Comment on above: Performed By: #### U CI ####[address] [address] UA Urobilinogen Normal Normal 0.2 - 1.0 [facility] Comment on above: Performed By: #### U CI ####[address] [address] Urobilinogen (U) [Mass/Vol] Negative Normal Negative [facility] Comment on above: Performed By: #### U CI ####[place] [id number] CBC with Auto Differentialon 02-04-2022 Absolute Eos # 0.31 [facility] Absolute Immature Granulocyte <0.03 [facility] Absolute Lymph # 3.02 [facility] Absolute [place] # 1.00 [facility] Basophils (Bld) [#/Vol] 0.07 10*3/uL [facility] Basophils/100 WBC (Bld) 1 % 0 - 2 % [facility] Eosinophils/100 WBC (Bld) 4 % 1 - 4 % [facility] Hematocrit (Bld) [Volume fraction] 38.5 % 36.3 - 47.1 % [facility] Hemoglobin (Bld) [Mass/Vol] 12.5 g/dL 11.9 - 15.1 g/dL [facility] Immature granulocytes/100 WBC (Bld) 0 % 0 [facility] Lymphocytes/100 WBC (Bld) 37 % 24 - 43 % [facility] MCH (RBC) [Entitic mass] 31.6 pg 25.2 - 33.5 pg [facility] MCHC (RBC) [Mass/Vol] 32.5 g/dL 28.4 - 34.8 g/dL [facility] MCV (RBC) [Entitic vol] 97.2 fL 82.6 - 102.9 fL [facility] Monocytes/100 WBC (Bld) 12 % 3 - 12 % [facility] NRBC Automated 0.0 0.0 per 100 WBC [facility] Platelet distribution width (Bld) [Ratio] 13.0 % 11.8 - 14.4 % [facility] Platelet mean volume (Bld) [Entitic vol] 8.6 fL 8.1 - 13.5 fL [facility] Platelets (Bld) [#/Vol] 363 10*3/uL [facility] RBC (Bld) [#/Vol] 3.96 10*6/uL 3.95 - 5.1 1 m/uL [facility] Segmented neutrophils/100 WBC (Bld) 46 % 36 - 65 % [facility] Segs Absolute 3.82 [facility] WBC (Bld) [#/Vol] 8.2 10*3/uL [facility] CBC with Auto Differentialon 01-02-2022 Absolute Eos # 0.00 [facility] Absolute Immature Granulocyte 0.00 [facility] Absolute Lymph # 2.08 [facility] Absolute [place] # 1.44 High [facility] Basophils (Bld) [#/Vol] 0.00 10*3/uL [facility] Basophils/100 WBC (Bld) 0 % 0 - 2 % [facility] Eosinophils/100 WBC (Bld) 0 % Low 1 - 4 % [facility] Hematocrit (Bld) [Volume fraction] 44.1 % 36.3 - 47.1 % [facility] Hemoglobin (Bld) [Mass/Vol] 14.6 g/dL 11.9 - 15.1 g/dL [facility] Immature granulocytes/100 WBC (Bld) 0 % 0 [facility] Interpretation and review of laboratory results Abnormal [facility] Lymphocytes/100 WBC (Bld) 13 % Low 24 - 43 % [facility] MCH (RBC) [Entitic mass] 30.9 pg 25.2 - 33.5 pg [facility] MCHC (RBC) [Mass/Vol] 33.1 g/dL 28.4 - 34.8 g/dL [facility] MCV (RBC) [Entitic vol] 93.4 fL 82.6 - 102.9 fL [facility] Monocytes/100 WBC (Bld) 9 % 3 - 12 % [facility] Morphology Joshua (Bld) [Interp] ANISOCYTOSIS PRESENT [facility] Morphology Joshua (Bld) [Interp] Platelet clumps present, count appears increased. [facility] NRBC Automated 0.0 0.0 per 100 WBC [facility] Platelet distribution width (Bld) [Ratio] 12.7 % 11.8 - 14.4 % [facility] Platelet mean volume (Bld) [Entitic vol] 8.7 fL 8.1 - 13.5 fL [facility] Platelets (Bld) [#/Vol] 494 10*3/uL High [facility] RBC (Bld) [#/Vol] 4.72 10*6/uL 3.95 - 5.1 1 m/uL [facility] Segmented neutrophils/100 WBC (Bld) 78 % High 36 - 65 % [facility] Segs Absolute 12.48 High [facility] WBC (Bld) [#/Vol] 16.0 10*3/uL High [facility] Comprehensive Metabolic Pane niall 01-02-2022 Albumin [Mass/Vol] 5.2 g/dL 3.5 - 5.2 g/dL [facility] Albumin/Globulin [Mass ratio] 1.9 {ratio} [facility] ALP (Bld) [Catalytic activity/Vol] 100 U/L 35 - 104 U/L [facility] ALT [Catalytic activity/Vol] 45 U/L High 5 - 33 U/L [facility] Anion gap [Moles/Vol] 10 mmol/L 9 - 17 mmol/L [facility] AST [Catalytic activity/Vol] 41 U/L High <32 [facility] Bilirubin [Mass/Vol] 0.32 mg/dL 0.3 - 1.2 mg/dL [facility] Calcium [Mass/Vol] 10.1 mg/dL 8.6 - 10. 4 mg/dL [facility] Chloride [Moles/Vol] 95 mmol/L Low 98 - 107 mmol/L [facility] CO2 [Moles/Vol] 32 mmol/L High 20 - 31 mmol/L [facility] Creatinine [Mass/Vol] 0.7 mg/dL 0.50 - 0.90 mg/dL [facility] Free PSA/Total PSA [Mass fraction] 8.0 g/dL 6.4 - 8.3 g/dL [facility] GFR >60 >60 mL/min [facility] GFR Non- >60 >60 mL/min [facility] Glucose [Mass/Vol] 101 mg/dL High 70 - 99 mg/dL [facility] Interpretation and review of laboratory results Abnormal [facility] Potassium [Moles/Vol] 4.2 mmol/L 3.7 - 5.3 mmol/L [facility] Sodium [Moles/Vol] 137 mmol/L 135 - 144 mmol/L [facility] Urea nitrogen (BldV) [Mass/Vol] 19 mg/dL 6 - 20 mg/dL [facility] Urea nitrogen/Creatinine (Bld) [Mass ratio] 27 High [facility] Laboratory - Chemistry and C hemistry - challengeon 01-02-2022 GFR/1.73 sq M.predicted MDRD (S/P/Bld) [Vol rate/Area] [facility] Comment on above: Average GFR for 50-5 9 years old: 93 mL/min/1.73sq m Chronic Kidney Disease: <60 mL/min/1.73sq m Kidney failure: <15 mL/min/1.73sq m eGFR calculated using average adult body mass. Additional eGFR calculator available at: http://www.Audi[employer]/multiple_crcl_2012.htm Stage 1: Some kidney damage normal GFR Stage 2: Mild kidney damage GFR 60-89 Stage 3: Moderate kidney damage GFR 30-59 Stage 4: Severe kidney damage GFR 15-29 Stage 5: Severe kidney damage GFR <15 ESRD - chronic treatment by dialysis or transplant Lipid Panelon 01-02-2022 Cholesterol [Mass/Vol] 286 mg/dL High <200 [facility] Comment on above: Cholesterol Guidelines: <200 Desirable 200-240 Borderline >240 Undesirable Cholesterol in HDL [Mass/Vol] 100 mg/dL >40 [facility] Comment on above: HDL Guidelines: <40 Undesirable 40-59 Borderline >59 Desirable Cholesterol in LDL [Mass/Vol] 163 mg/dL High 0 - 130 mg/dL [facility] [employer] Comment on above: LDL Guidelines: <100 Desirable 100-129 Near to/above Desirable 130-159 Borderline >159 Undesirable Direct (measured) LDL and calculated LDL are not interchangeable tests. Cholesterol.total/C holesterol in HDL [Mass ratio] 2.9 {ratio} <5 [facility] Interpretation and review of laboratory results Abnormal [facility] Triglyceride [Mass/Vol] 116 mg/dL <150 [facility] [employer] Comment on above: Triglyceride Guidelines: <150 Desirable 150-199 Borderline 200-499 High >499 Very high Based on AHA Guidelines for fasting triglyceride, May 2012. [facility] Urinalysis with Microscopico n 01-02-2022 - [facility] Bacteria, UA TRACE Abnormal None [facility] Bilirubin Urine Negative NEGATIVE [facility] Color, UA Yellow Yellow [facility] Epithelial Cells UA 0 TO 2 [facility] Glucose, Ur Negative NEGATIVE [facility] Interpretation and review of laboratory results Abnormal [facility] Ketones Ql (U) Negative NEGATIVE [facility] Leukocyte esterase Test strip Ql (U) Negative NEGATIVE [facility] Nitrite, Urine Negative NEGATIVE [facility] pH, UA 6.0 [facility] Protein, UA Negative NEGATIVE [facility] RBC, UA 0 TO 2 [facility] Specific [address], UA <1.005 Low [facility] Turbidity UA Clear Clear [facility] Urine Hgb Negative NEGATIVE [facility] Urobilinogen, Urine Normal Normal [facility] WBC, UA 0 TO 2 [facility] XR LUMBAR SPINE (2-3 VIEWS)o n 01-02-2022 L3 through S1 degenerative changes [facility] CONSOLIDATED EXAMINATION: THREE XRAY VIEWS OF THE [...] pars interarticularis defect, fracture or dislocation seen [facility] RIS CONSOLIDATED Rema Roe M D - [...] seen IMPRESSION: L3 through S1 degenerative changes [employer] Phone: Radiology Study observation (narrative) [employer] Phone: XR LUMBAR SPINE (2-3 VIEWS)O rdered By: Rema Roe on 01-02-2022 [employer] [facility] Phone: CBC AUTO DIFFon 06-03-2021 BASO # 0.1 103/ul Normal 0.0-0.1 [facility] Comment on above: Performed By: #### C BC #### [facility] [address] [place] [address] Dr. Estiven Bull Basophils/100 WBC (Bld) 1.0 % Normal 0.2-2.0 [facility] Comment on above: Performed By: #### C BC #### [facility] [address] [place] [address] Dr. Estiven Bull EO # 0.3 103/ul Normal 0.0-0.7 [facility] Comment on above: Performed By: #### C BC #### [facility] [address] [place] [address] Dr. Estiven Bull Eosinophils/100 WBC (Bld) 5.1 % Normal 0.9-7.0 [facility] Comment on above: Performed By: #### C BC #### [facility] [address] [place] [address] Dr. Estiven Bull Erythrocyte distribution width (RBC) [Ratio] 12.4 % Normal 11.0-15.0 [facility] Comment on above: Performed By: #### C BC #### [facility] [address] [place] [address] Dr. Estiven Bull Hematocrit (Bld) [Volume fraction] 41.2 % Normal 36.0-48.0 [facility] Comment on above: Performed By: #### C BC #### [facility] [address] [place] [address] Dr. Estiven Bull Hemoglobin (Bld) [Mass/Vol] 13.1 g/dL Normal 12.0-16.0 [facility] Comment on above: Performed By: #### C BC #### [facility] [address] [place] [address] Dr. Estiven Bull IG # 0.01 10e3/ul Normal 0.00-0.03 [facility] Comment on above: Performed By: #### C BC #### [facility] [address] [place] [address] Dr. Estiven Bull IG % 0.2 % Normal 0.0-0.5 [facility] Comment on above: Performed By: #### C BC #### [facility] [address] [place] [address] Dr. Estiven Bull LYMPH # 2.0 103/ul Normal 1.2-3.8 [facility] Comment on above: Performed By: #### C BC #### [facility] [address] [place] [address] Dr. Estiven Bull Lymphocytes/100 WBC (Bld) 32.0 % Normal 20.5-60.0 [facility] Comment on above: Performed By: #### C BC #### [facility] [address] [place] [address] Dr. Estiven Bull MANUAL DIFF REQ NO Normal [facility] Comment on above: Performed By: #### C BC #### [facility] [address] [place] [address] Dr. Estiven Bull MCH (RBC) [Entitic mass] 30.7 pg Normal 26.7-34.0 [facility] Comment on above: Performed By: #### C BC #### [facility] [address] [place] [address] Dr. Estiven Bull MCHC (RBC) [Mass/Vol] 31.8 g/dL Normal 29.9-35.2 [facility] Comment on above: Performed By: #### C BC #### [facility] [address] [place], [place] [id number] Dr. Estiven Bull MCV (RBC) [Entitic vol] 96.5 fL Normal 81.0-99.0 [facility] Comment on above: Performed By: #### C BC #### [facility] [address] [place] [address] Dr. Estiven Bull MONO # 0.6 103/ul Normal 0.3-0.8 [facility] Comment on above: Performed By: #### C BC #### [facility] [address] [place] [address] Dr. Estiven Bull Monocytes/100 WBC (Bld) 10.2 % Normal 1.7-12.0 [facility] Comment on above: Performed By: #### C BC #### [facility] [address] [place] [address] Dr. Estiven Bull NEUT # 3.2 103/ul Normal 1.4-6.5 [facility] Comment on above: Performed By: #### C BC #### [facility] [address] [place] [address] Dr. Estiven Bull Neutrophils/100 WBC (Bld) 51.5 % Normal 43.0-75.0 [facility] Comment on above: Performed By: #### C BC #### [facility] [address] [place] [address] Dr. Estiven Bull Platelet mean volume (Bld) [Entitic vol] 9.6 fL Normal 9.5-13.5 [facility] Comment on above: Performed By: #### C BC #### [facility] [address] [place] [address] Dr. Estiven Bull PLT 379 103/ul Normal 150-450 [facility] Comment on above: Performed By: #### C BC #### [facility] [address] [place] [address] Dr. Estiven Bull RBC 4.27 106/ul Normal 4.20-5.40 [facility] Comment on above: Performed By: #### C BC #### [facility] [address] [place] [address] Dr. Estiven Bull WBC 6.1 103/ul Normal 4.0-11.0 [facility] Comment on above: Performed By: #### C BC #### [facility] [address] [place], [place] [address] Dr. Estiven Bull LIPID PROFILEon 06-03-2021 CHOL-HDL RATIO NORM SEE BELOW Normal [facility] Comment on above: Result Comment: 3.3 - 4.4 LOW RISK 4.4 - 7.1 AVERAGE RISK 7.1 - 11.0 MODERATE RISK >11.0 HIGH RISK Performed By: #### L IPID, CMP #### [facility] [address] [place], [place] [address] Dr. Estiven Bull Cholesterol [Mass/Vol] 261 mg/dL Critically high <=200 [facility] Comment on above: Performed By: #### L IPID, CMP #### [facility] [address] [address] [address] Estiven Bull Cholesterol in HDL [Mass/Vol] 101 mg/dL Normal [facility] Comment on above: Performed By: #### L IPID, CMP #### [facility] [address] [place], [place] [address] Dr. Estiven Bull Cholesterol in LDL [Mass/Vol] 143.0 mg/dL Normal [facility] Comment on above: Performed By: #### L IPID, CMP #### [facility] [address] [place], [place] [address] Dr. Estiven Bull Cholesterol.total/C holesterol in HDL [Mass ratio] 2.6 {ratio} Normal [facility] Comment on above: Performed By: #### L IPID, CMP #### [facility] [address] [place], [place] [address] Dr. Estiven Bull HDL NORMAL > or = 60 mg/dl - LO W CARDIOVASCULAR RISK <40 mg/dl - HIGH CARDIOVASCULAR RISK Normal [facility] Comment on above: Performed By: #### L IPID, CMP #### [facility] [address] [place], [place] [address] Dr. Estiven Bull LDL CALC NORMAL SEE BELOW Normal [facility] Comment on above: Result Comment: <100 mg/dl OPTIMAL 100 - 129 mg/dl NEAR OR ABOVE OPTIMAL 130 - 159 mg/dl BORDERLINE HIGH 160 - 189 mg/dl HIGH >190 mg/dl VERY HIGH Performed By: #### L IPID, CMP #### [facility] [address] [place] [address] Dr. Estiven Bull Triglyceride [Mass/Vol] 85 mg/dL Normal <=150 [facility] Comment on above: Performed By: #### L IPID, CMP #### [facility] [address] [place] [address] Dr. Estiven Bull VLDL CALC 17.0 mg/dL Normal [facility] Comment on above: Performed By: #### L IPID, CMP #### [facility] [address] [place] [address] Dr. Estiven Bull MICROALBUMIN, RAND URon 110 mALB 0.2 mg/L Normal <=30.0 [facility] Comment on above: Performed By: #### M ALBR #### [facility] [address] [place] [address] Dr. Estiven Bull PROF 14(COMP METB)on 021 Albumin [Mass/Vol] 3.9 g/dL Normal 3.5-5.0 [facility] Comment on above: Performed By: #### L IPID, CMP #### [facility] [address] [place] [address] Dr. Estiven Bull Albumin/Globulin [Mass ratio] 1.1 {ratio} Normal [facility] Comment on above: Performed By: #### L IPID, CMP #### [facility] [address] [place] [address] Dr. Estiven Bull ALP [Catalytic activity/Vol] 98 U/L Normal 38-126 [facility] Comment on above: Performed By: #### L IPID, CMP #### [facility] [address] [place] [address] Dr. Estiven Bull ALT [Catalytic activity/Vol] 26 U/L Normal 9-52 [facility] Comment on above: Performed By: #### L IPID, CMP #### [facility] [address] [place] [address] [address] Estiven Bull Anion gap [Moles/Vol] 13.3 mmol/L Normal [facility] Comment on above: Performed By: #### L IPID, CMP #### [facility] [address] [place] [address] Dr. Estiven Bull AST [Catalytic activity/Vol] 23 U/L Normal 14-36 [facility] Comment on above: Performed By: #### L IPID, CMP #### [facility] [address] [place] [address] Dr. Estiven Bull Bilirubin [Mass/Vol] 0.6 mg/dL Normal 0.2-1.3 [facility] Comment on above: Performed By: #### L IPID, CMP #### [facility] [address] [place] [address] Dr. Estiven Bull Calcium [Mass/Vol] 9.3 mg/dL Normal 8.4-10.2 [facility] Comment on above: Performed By: #### L IPID, CMP #### [facility] [address] [place] [address] Dr. Estiven Bull Chloride [Moles/Vol] 100 mmol/L Normal 98-107 [facility] Comment on above: Performed By: #### L IPID, CMP #### [facility] [address] [place] [address] Dr. Estiven Bull CO2 [Moles/Vol] 29.0 mmol/L Normal 22.0-30.0 [facility] Comment on above: Performed By: #### L IPID, CMP #### [facility] [address] [place] [address] Dr. Estiven Bull Creatinine [Mass/Vol] 0.71 mg/dL Normal 0.52-1.04 [facility] Comment on above: Performed By: #### L IPID, CMP #### [facility] [address] [place] [address] Dr. Estiven Bull EGFR-AF VENEZUELAN >60 Normal >=60 [facility] Comment on above: Performed By: #### L IPID, CMP #### [facility] [address] [place] [address] [address] Estiven Bull EGFR-NON AF VENEZUELAN >60 Normal >=60 [facility] Comment on above: Performed By: #### L IPID, CMP #### [facility] [address] [place] [address] [address] Estiven Bull Globulin (S) [Mass/Vol] 3.7 g/dL Normal [facility] Comment on above: Performed By: #### L IPID, CMP #### [facility] [address] [place] [address] Dr. Estiven Bull Glucose [Mass/Vol] 91 mg/dL Normal 74-106 [facility] Comment on above: Performed By: #### L IPID, CMP #### [facility] [address] [place] [address] Dr. Estiven Bull Potassium [Moles/Vol] 4.3 mmol/L Normal 3.4-5.0 [facility] Comment on above: Performed By: #### L IPID, CMP #### [facility] [address] [place] [address] Dr. Estiven Bull Protein [Mass/Vol] 7.6 g/dL Normal 6.1-8.2 [facility] Comment on above: Performed By: #### L IPID, CMP #### [facility] [address] [place] [address] Dr. Estiven Bull Sodium [Moles/Vol] 138 mmol/L Normal 137-145 [facility] Comment on above: Performed By: #### L IPID, CMP #### [facility] [address] [place] [address] Dr. Estiven Bull Urea nitrogen [Mass/Vol] 17.0 mg/dL Normal 7.0-17.0 [facility] Comment on above: Performed By: #### L IPID, CMP #### [facility] [address] [place] [address] Dr. Estiven Bull Urea nitrogen/Creatinine [Mass ratio] 23.9 mg/mg Normal [facility] Comment on above: Performed By: #### L IPID, CMP #### [facility] [address] [place] [address] [address] Estiven Bull Encounters Encounter Date Encounter Type Care Provider Facility Start: 03-09-2024 End: 03-09-2024 ambulatory CHERRI FITO Not Available Start: 02-08-2024 End: 02-08-2024 ambulatory CHERRI FITO Not Available Start: 01-24-2024 End: 01-24-2024 ambulatory ESTELLE HOANG Not Available Start: 11-09-2023 End: 11-12-2023 [facility] Start: 10-18-2023 End: 10-18-2023 ambulatory ESTELLE VIKTOR Not Available Start: 09-06-2023 End: 09-06-2023 ambulatory ESTELLE VIKTOR Not Available Start: 03-31-2023 End: 04-03-2023 ambulatory [facility] Start: 02-11-2023 End: 02-12-2023 [facility] Start: 02-11-2023 End: 02-12-2023 Encounter for general adult medical examination without abnormal findings [facility] Start: 02-11-2023 End: 02-11-2023 Subsequent hospital visit by physician Estelle Hoang Work Phone: [facility] Start: 06-23-2022 End: 06-24-2022 ambulatory MD Ravi Phillips Facility:[facility] Start: 05-07-2022 End: 05-08-2022 ambulatory Estelle Hoang PLODDING OPERATOR-PALS SPECIALIST Facility:[facility] Start: 04-02-2022 End: 04-03-2022 ambulatory MD Ravi Phillips Facility:[facility] Start: 03-12-2022 End: 03-12-2022 ambulatory MD Ravi Phillips Facility[facility] Start: 03-11-2022 End: 03-12-2022 ambulatory Esetlle Hoang PLODDING OPERATOR-PALS SPECIALIST Facility:[facility] Start: 03-10-2022 End: 03-11-2022 ambulatory MD Ravi Phillips Facility:[facility] Start: 03-10-2022 End: 03-11-2022 ambulatory Kwasi Rose PA-C Facility:[facility] Start: 02-04-2022 End: 02-04-2022 Subsequent hospital visit by physician Estelle Hoang Work Phone: [facility] Laboratory Start: 01-02-2022 End: 01-04-2022 Subsequent hospital visit by physician Oz Christie Dr Room [address] [facility] Laboratory Comment on above: Low back pain, unspe cified back pain laterality, unspecified chronicity, unspecified whether sciatica present Start: 07-03-2021 Encounter for genera l adult medical examination without abnormal findings ASHLEY PARK [facility] Start: 06-03-2021 End: 06-04-2021 ambulatory PALS SPECIALIST ESTELLE HOANG Facility:[facility] Start: 06-03-2021 End: 06-04-2021 Encounter for general adult medical examination without abnormal findings PALS SPECIALIST ESTELLE HOANG Facility:[facility] Procedures Date Procedure Procedure [...] Detail Author Start: 01-02-2027 Lipid panel Lipids [facility] Start: 03-31-2023 End: 03-31-2023 Patient encounter procedure 03/31/2023 Appointment Radiology [facility] Start: 03-02-2023 Influenza vaccination Flu vaccine (#1) [facility] Start: 04-02-2022 Influenza vaccination [facility] Start: 01-19-2020 Lipid panel Lipids [facility] Start: 2016 Screening for malignant neoplasm of breast Breast cancer screen [facility] Start: 2016 Shingles vaccine (1 of 2) Shingles vaccine (1 of 2) [facility] Start: 06-19-2014 Screening for malignant neoplasm of cervix [facility] Start: 2011 Screening for malignant neoplasm of colon [facility] Start: 1996 Screening for malignant neoplasm of cervix HPV (without or with Pap) [facility] Start: 1985 DTaP/Tdap/Td vaccine (1 - Tdap) DTaP/Tdap/Td vaccine (1 - Tdap) [facility] Start: 1984 Hepatitis C screening Hepatitis C screen [facility] Start: 1981 HIV screening HIV screen [facility] Start: 1978 Depression Screen Depression Screen [facility] Start: 1972 Pneumococcal 0-64 years Vaccine (1 - PCV) Pneumococcal 0-64 years Vaccine (1 - PCV) [facility] Start: 1971 COVID-19 Vaccine (1) COVID-19 Vaccine (1) [facility] Start: 01-31-1967 COVID-19 Vaccine (#1) COVID-19 Vaccine (#1) [facility] [employer] Payers Date Payer Category Payer Unknown 1966 Unknown [id number] 2.16.84 [id number] 1966 Unknown [id number] 2.16. [id number] 1966 Unknown [id number] 2.16. [id number] 1966 Unknown [id number] 2.16. [id number] 1966 Unknown [id number] 2.16. [id number] 1966 Unknown [id number] 2.16. [id number] 1966 Unknown [id number] 2.16. [id number] 1966 Unknown [id number] 2.16. [id number] 1966 Unknown [id number] 2.16. [id number] 1966 Unknown [id number] 2.16.8 [id number] 1966 Unknown [id number] 2.16.8 [id number] 1966 Unknown [id number] 2.16.8 [id number] 1966 Unknown [id number] 2.16.84 [id number] 1966 Unknown [id number] 2.16.84 [id number] 1966 Unknown [id number] 2.16.84 [id number] 1966 Unknown [id number] 2.16.84 [id number] 1966 Unknown [id number] 2.16.84 [id number] 1959 Unknown [id number] Social History Date Type Detail Facility Start: 06-19-2011 [facility] [employer] Start: 06-19-2011 Cigarettes smoked current (pack per day) - Reported 0.5 [employer] Phone: Start: 06-19-2011 Alcohol intake Current drinke r of alcohol (finding) [employer] Phone: Start: 1965 Sex Assigned At Not on file B ON [employer] Phone: History of tobacco use Cigarette Smoker B ON [employer] Clinical Note 03-17-2022 Note Date & Type [...] Signed, Electronically Signed in Other Vendor System) [facility] Evaluation note Note Date & Type Note Facility Evaluation note Diagnosis Low back pain, unspecified back pain laterality, unspecified chronicity, unspecified whether sciatica present documented in this encounter [employer] Phone: Summary Purpose Family History No Family History Records FoundNo Family History Records FoundNo Family History Records FoundNo Family History Records Found Advance Directives No Advanced Directives Records FoundDocuments on File Type Date Recorded 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 Care Teams (unrecognized sec tion and content) [employer] Equipment Operator Relationship Specialty Start Date End Date ChrissielinoEstelle delgado [address] [place] [address] PCP - General Nurse Practitioner 01/02/22 [employer] Relationship Specialty Start Date End Date ChrissieilnoEstelle delgado [address] [place] [address] PCP - General Nurse Practitioner 01/02/22 [employer] Equipment Operator Relationship Specialty Start Date End Date DelilahEstelle delgado [address] [place] [address] PCP - General Nurse Practitioner 01/02/22 [employer] Equipment Operator Relationship Specialty Start Date End Date Delilahdanny Estelle Royal [address] [place] [address] PCP - General Nurse Practitioner 01/02/22 FOR [...] BE BASED ON THE PRIMARY CLINICAL RECORDS. [facility] [employer] [facility]. provides no warranty or guarantee of the accuracy or completeness of information in this document.
[2024-04-07 07:17] LABS: Basophils Absolute Auto 0.1 10^3/uL (0.0-0.1); Basophils Percent Auto 0.8 % (0.2-2.0); Eosinophils Absolute Auto 0.4 10^3/uL (0.0-0.7); Eosinophils Percent Auto 5.3 % (0.9-7.0); Hematocrit 42.5 % (36.0-48.0); Hemoglobin 13.9 g/dL (12.0-16.0); Immature Granulocytes Abs Auto 0.03 10^3/uL (0.00-0.03); Immature Granulocytes Pct Auto 0.4 % (0.0-0.5); Lymphocytes Percent Auto 36.3 % (20.5-60.0); Mean Corpuscular HGB Conc 32.7 g/dL (29.9-35.2); Mean Corpuscular Volume 94.9 fL (81.0-99.0); Mean Platelet Volume 8.6 fL (9.5-13.5); Monocytes Absolute Auto 0.8 10^3/uL (0.3-0.8); Monocytes Percent Auto 9.6 % (1.7-12.0); Neutrophils Percent Auto 47.6 % (43.0-75.0); Platelet Count 370 10^3/uL (150-450); Red Blood Count 4.48 10^6/uL (4.20-5.40); Red Cell Distribution Width 12.8 % (11.0-15.0); White Blood Count 8.3 10^3/uL (4.0-11.0)
[2024-04-07 07:30] VITALS: BP 136/75; PULSE 69; TEMP 36.6; O2SAT 100; BMI 29.9
[2024-04-07 07:42] LABS: HCG Quantitative 5 mIU/mL
--- NOTE | 2024-04-07 07:55 | PC.NURSE ---
2 IV attempts per aligner typewriter and 1 unsuccessful attempt by another nurse
[2024-04-07] MEDS: LACTATED RINGER'S SOLUTION 1,000 ML 50 ML IV (07:57)
--- NOTE | 2024-04-07 08:59 | P.ON_ITS ---
Brief Operative Note Date of procedure: 04/07/24 Pre-op diagnosis general: thickend endometrium, intrauterine mass Post-op diagnosis: same as pre-op Procedure: NAME OF PROCEDURE: [ D&c hysteroscopy with myosure] PROCEDURE: The patient was taken back to the Operating Room where she was prepped and draped in normal sterile fashion after being placed under general anesthesia without difficulty. She was also placed in the dorsal lithotomy position. A weighted speculum was placed in the patient?s vagina. The anterior lip of the cervix was identified and grasped with a single tooth tenaculum. The patient?s uterus was then sounded roughly to [? 8] cm. The patient was then gently dilated using Hegar dilators. The hysteroscope was passed through the patient?s cervix into the uterus. Both ostia were identified. fluffy appearing endometrium. No gross evidence of malignancy, no gross evidence of polyps or fibroids. The myosure apparatus was placed through the scope, The myosure was engaged and end ometrial curretting were removed along with endometrial polyp, The hysteroscope was then removed from the uterus. The endometrial curettings were sent out to pathology. The single tooth tenaculum was then removed from the patient's anterior lip of the cervix where excellent hemostasis was noted. All instruments were removed from the patient?s vagina. The patient tolerated the procedure well. Sponge, lap and needle counts were correct times two. The patient was taken to the Recovery Room in stable condition.Room in stable condition. Anesthesia: MAC Surgeon: Chicho Santiago Estimated blood loss (mL): 5 Pathology: other (uterine polyp and endometrial currettings) Condition: stable Disposition: PACU Urinary Catheter Management Urinary Catheter Management Urethral: Cath placed during this visit: no
[2024-04-07 09:03] VITALS: BP 119/75; PULSE 68; O2SAT 96
[2024-04-07 09:18] VITALS: BP 151/67; PULSE 68; O2SAT 97
--- NOTE | 2024-04-07 09:33 | PC.NURSE ---
Peripad changed for small amount bleeding; no clots noted.
--- NOTE | 2024-04-07 09:36 | PC.NURSE ---
Small amount bleeding noted on peripad ; no clots
[2024-04-07 09:50] VITALS: BP 145/73; PULSE 61; O2SAT 97
--- NOTE | 2024-04-07 09:52 | PC.NURSE ---
Peripad changed for small amount bleeding without clots; assisted to chair; heating pad to abdomen
[2024-04-07 10:21] VITALS: BP 147/75; PULSE 63; O2SAT 100
--- NOTE | 2024-04-07 10:23 | PC.NURSE ---
Remains sitting up in chair; denies urge to void
[2024-04-07 11:11] VITALS: BP 164/86; PULSE 64; O2SAT 96
--- NOTE | 2024-04-07 11:13 | PC.NURSE ---
Up to bathroom and voids clear pink tinged urine without difficulty and no clots noted. Peripad changed for small amount bleeding.
== END 2024-04-07 11:05 | disposition home or self-care (01) ==
PROVIDERS: PCP Nurse Practitioner; Visit Provider Obstetrics & Gynecology
PROC: (CPT 952; principal; 2024-04-07 08:25)
DX: R93.89 Abnormal findings on diagnostic imaging of other specified body structures (principal); N84.0 Polyp of corpus uteri; Z98.51 Tubal ligation status; F17.210 Nicotine dependence, cigarettes, uncomplicated; E78.5 Hyperlipidemia, unspecified; I10 Essential (primary) hypertension; K21.9 Gastro-esophageal reflux disease without esophagitis
CPT/HCPCS: 58558; 36415; 84702; 85025; 88305; J1100; J1885; J2250; J2405; J2704; J3010

== ENCOUNTER 2024-11-16 13:25 | Outpatient (REF) | payer OTHER, SELFPAY | END 2024-11-16 13:26 | disposition home or self-care (01) | LOC: LAB 13:25 | PROVIDERS: PCP Nurse Practitioner; Visit Provider Obstetrics & Gynecology | DX: R93.89 Abnormal findings on diagnostic imaging of other specified body structures (principal); Z51.81 Encounter for therapeutic drug level monitoring; Z79.899 Other long term (current) drug therapy | CPT/HCPCS: 88305 ==